=== PATIENT | female | born 1930 | race African-American/Black ===

== ENCOUNTER 2017-09-27 10:27 | Emergency (ER) | payer MEDICARE, BC ==
[~2017-09-27] VITALS: Ht 167.6 cm; Wt 68.2 kg
[~2017-09-27 10:27] MED LIST: ASPIRIN CHEWABL81 MG PO; ATORVASTATIN CA10 MG PO; AVAPRO300 MG PO; CIPROFLOXACN500 MG PO; DORZOL/TIMOL1 ML OU; LEVOTHYROXIN100 MCG PO; LEVOTHYROXIN25 MC1 PO; LEVOTHYROXIN75 MCG PO; LOSARTAN POT50 MG PO; METFORMIN500 M1 PO; METFORMIN500 MG PO; NEXIUM40 M1 PO; NIFEDIAC CC30 MG PO; NIFEDIPINE30 MG PO; OMEPRAZOLE20 MG PO; PRILOSEC20 MG/CAP PO; TRAMADOL HCL50 MG OR; ULTRAM50 MG OR; ZPAK PO
[2017-09-27 11:37] LABS: HEMATOCRIT 35.1 % (37.0-47.0); HEMOGLOBIN 11.2 g/dl (12.0-16.0); IMMATURE GRANULOCYTES 0.3 % (0.0-1.0); MEAN CELL VOLUME 93.4 fL CALC (80.0-100.0); MEAN CORPUSCULAR HGB 29.8 pG CALC (26.0-32.0); MEAN CORPUSCULAR HGB CONC 31.9 g/L CALC (32.0-36.0); NEUT# 5.4 thou/uL (2.00-7.15); RED BLOOD COUNT 3.76 mill/uL (4.20-5.60); RED CELL DISTRI WIDTH 13.9 % (11.5-15.5)
[2017-09-27 11:47] LABS: ALKALINE PHOSPHATASE 99 u/l (38-126); ANION GAP 17 (6-22 (CALC)); BILIRUBIN, TOTAL 0.4 mg/dL (0.0-1.4); BUN 25 mg/dL (8-23); BUN/CREATININE RATIO 19 (12-20 (CALC)); CARBON DIOXIDE 27 mmol/l (22-30); CHLORIDE 104 mmol/l (95-108); CREATININE 1.3 mg/dL (0.5-1.0); GFR 39 ML/MIN (>=60 (CALC)); GFR FOR AFR.AMER. 47 ML/MIN (>=60 (CALC)); POTASSIUM 4.2 mmol/l (3.5-5.1); SGOT/AST 19 u/l (9-36); SGPT/ALT 31 u/l (11-66); SODIUM 144 mmol/l (137-146); TOTAL PROTEIN 7.7 g/dL (6.3-8.2)
[2017-09-27 11:58] LABS: MYOGLOBIN 51 ng/mL (0 - 62)
[2017-09-27 12:51] LABS: URINE BILIRUBIN - DIPSTICK NEGATIVE (NEGATIVE); URINE BLOOD DIPSTICK SMALL (NEGATIVE); URINE COLOR YELLOW; URINE GLUCOSE - DIPSTICK NEGATIVE (NEGATIVE); URINE KETONE NEGATIVE (NEGATIVE); URINE LEUK ESTERASE TRACE (NEGATIVE); URINE PH 7.5 (4.5-8.0); URINE PROTEIN - DIPSTICK NEGATIVE (NEG-TRACE); URINE SPECIFIC GRAVITY 1.015; URINE UROBILINOGEN - DIPSTICK 0.2 E.U./dL (0.2)
[2017-09-27 12:58] LABS: URINE CLARITY HAZY; URINE NITRITE - DIPSTICK POSITIVE (Negative)
[2017-09-27 12:59] LABS: URINE BACTERIA MANY hpf; URINE RBC 0-2 RBC/hpf (0-5)
[2017-09-27] MEDS ORDERED: KEFLEX500 M1 PO (13:15)
[2017-09-27 14:10] VITALS: BP 180/89
== END 2017-09-27 14:10 | disposition home or self-care (01) ==
LOC: ED 10:27
PROVIDERS: Emergency Medicine
PROC: 0T9B70Z Drainage of Bladder with Drainage Device, Via Natural or Artificial Opening (ICD-10-PCS; principal; 2017-09-27)
DX: N39.0 Urinary tract infection, site not specified (principal); B96.20 Unspecified Escherichia coli [E. coli] as the cause of diseases classified elsewhere; R53.1 Weakness; I10 Essential (primary) hypertension; E11.9 Type 2 diabetes mellitus without complications

== ENCOUNTER 2018-04-20 00:48 | Observation (INO) | payer MEDICARE, BC ==
[~2018-04-20] VITALS: Ht 167.6 cm; Wt 77.0 kg
[~2018-04-20 00:48] MED LIST changes: +KEFLEX500 M1 PO
[2018-04-20 01:32] LABS: HEMATOCRIT 39.1 % (37.0-47.0); HEMOGLOBIN 12.5 g/dl (12.0-16.0); IMMATURE GRANULOCYTES 0.2 % (0.0-5.0); MEAN CORPUSCULAR HGB 29.4 pG CALC (26.0-32.0); NEUT# 6.19 thou/uL (2.00-7.15); RED BLOOD COUNT 4.25 mill/uL (4.20-5.60); RED CELL DISTRI WIDTH 13.8 % (11.5-15.5)
[2018-04-20 01:43] LABS: ALBUMIN 4.1 g/dL (3.2-5.0); ALKALINE PHOSPHATASE 96 u/l (38-126); ANION GAP 14 (6-22 (CALC)); BILIRUBIN, TOTAL 0.4 mg/dL (0.0-1.4); BUN 29 mg/dL (8-23); BUN/CREATININE RATIO 25 (12-20 (CALC)); CARBON DIOXIDE 26 mmol/l (22-30); CHLORIDE 105 mmol/l (95-108); CREATININE 1.1 mg/dL (0.5-1.0); GFR 47 ML/MIN (>=60 (CALC)); GFR FOR AFR.AMER. 57 ML/MIN (>=60 (CALC)); POTASSIUM 4.6 mmol/l (3.5-5.1); SGOT/AST 23 u/l (9-36); SODIUM 141 mmol/l (137-146); TOTAL PROTEIN 7.8 g/dL (6.3-8.2)
[2018-04-20 01:56] LABS: MYOGLOBIN 38 ng/mL (0 - 62)
[2018-04-20 02:15] LABS: URINE BILIRUBIN - DIPSTICK NEGATIVE (NEGATIVE); URINE BLOOD DIPSTICK SMALL (NEGATIVE); URINE COLOR YELLOW; URINE GLUCOSE - DIPSTICK >=1000 mg/dL (NEGATIVE); URINE KETONE NEGATIVE (NEGATIVE); URINE LEUK ESTERASE NEGATIVE (NEGATIVE); URINE NITRITE - DIPSTICK NEGATIVE (Negative); URINE PH 5.5 (4.5-8.0); URINE PROTEIN - DIPSTICK NEGATIVE (NEG-TRACE); URINE SPECIFIC GRAVITY 1.025; URINE UROBILINOGEN - DIPSTICK 0.2 E.U./dL (0.2)
[2018-04-20 02:16] LABS: URINE CLARITY CLEAR
[2018-04-20 02:30] LABS: URINE SQUAMOUS EPITHELIAL CELL FEW EPI/hpf (0-FEW)
[2018-04-20 02:31] LABS: URINE BACTERIA RARE hpf
[2018-04-20 03:11] LABS: TSH, 3RD GENERATION 1.4 uIU/mL (0.47 - 4.68)
[2018-04-20 03:55] VITALS: BP 154/91
[2018-04-20 08:18] VITALS: BP 160/81
[2018-04-20 12:48] VITALS: BP 105/69
[2018-04-20 15:20] VITALS: BP 131/86
[2018-04-20 19:09] VITALS: BP 139/88
[2018-04-20 23:41] VITALS: BP 150/86
[2018-04-21 04:27] VITALS: BP 162/91
[2018-04-21 05:54] LABS: HEMATOCRIT 37.2 % (37.0-47.0); HEMOGLOBIN 11.9 g/dl (12.0-16.0); IMMATURE GRANULOCYTES 0.5 % (0.0-5.0); MEAN CELL VOLUME 92.3 fL CALC (80.0-100.0); MEAN CORPUSCULAR HGB 29.5 pG CALC (26.0-32.0); NEUT# 6.55 thou/uL (2.00-7.15); RED BLOOD COUNT 4.03 mill/uL (4.20-5.60); RED CELL DISTRI WIDTH 13.6 % (11.5-15.5)
[2018-04-21 06:07] LABS: ALBUMIN 3.9 g/dL (3.2-5.0); BILIRUBIN, TOTAL 0.5 mg/dL (0.0-1.4); CREATININE 1.1 mg/dL (0.5-1.0); MAGNESIUM 1.6 mg/dL (1.6-2.3); POTASSIUM 3.8 mmol/l (3.5-5.1); TOTAL PROTEIN 7.3 g/dL (6.3-8.2)
[2018-04-21 08:15] VITALS: BP 123/82
[2018-04-21 11:10] VITALS: BP 125/81
[2018-04-21 15:20] VITALS: BP 132/85
[2018-04-21 19:00] VITALS: BP 121/83
[2018-04-22 00:09] VITALS: BP 134/86
[2018-04-22 04:32] VITALS: BP 144/86
[2018-04-22 05:52] LABS: HEMATOCRIT 34.9 % (37.0-47.0); HEMOGLOBIN 11.4 g/dl (12.0-16.0); IMMATURE GRANULOCYTES 0.3 % (0.0-5.0); MEAN CELL VOLUME 90.6 fL CALC (80.0-100.0); MEAN CORPUSCULAR HGB 29.6 pG CALC (26.0-32.0); MEAN CORPUSCULAR HGB CONC 32.7 g/L CALC (32.0-36.0); NEUT# 7.23 thou/uL (2.00-7.15); RED BLOOD COUNT 3.85 mill/uL (4.20-5.60); RED CELL DISTRI WIDTH 14.1 % (11.5-15.5)
[2018-04-22 06:13] LABS: ALBUMIN 3.5 g/dL (3.2-5.0); BILIRUBIN, TOTAL 0.4 mg/dL (0.0-1.4); CREATININE 1.2 mg/dL (0.5-1.0); MAGNESIUM 1.9 mg/dL (1.6-2.3); POTASSIUM 4.1 mmol/l (3.5-5.1); TOTAL PROTEIN 6.5 g/dL (6.3-8.2)
[2018-04-22 08:29] VITALS: BP 137/83
[2018-04-22 11:50] VITALS: BP 133/87
[2018-04-22 16:43] VITALS: BP 127/82
[2018-04-22 17:48] LABS: CHOLESTEROL HDL RATIO 3.5 (<4.4 (CALC))
[2018-04-22 19:31] VITALS: BP 132/78
[2018-04-23 00:43] VITALS: BP 143/90
[2018-04-23 04:00] VITALS: BP 175/98
[2018-04-23 06:07] LABS: HEMOGLOBIN 11.2 g/dl (12.0-16.0); MEAN CELL VOLUME 92.6 fL CALC (80.0-100.0); MEAN CORPUSCULAR HGB 29.6 pG CALC (26.0-32.0); RED BLOOD COUNT 3.78 mill/uL (4.20-5.60); RED CELL DISTRI WIDTH 13.9 % (11.5-15.5)
[2018-04-23 06:41] LABS: ANION GAP 13 (6-22 (CALC)); BUN 21 mg/dL (8-23); BUN/CREATININE RATIO 21 (12-20 (CALC)); CARBON DIOXIDE 23 mmol/l (22-30); CHLORIDE 107 mmol/l (95-108); GFR 53 ML/MIN (>=60 (CALC)); GFR FOR AFR.AMER. > 60 ML/MIN (>=60 (CALC)); POTASSIUM 4.5 mmol/l (3.5-5.1); SGOT/AST 34 u/l (9-36); SODIUM 139 mmol/l (137-146)
[2018-04-23 06:52] LABS: ALKALINE PHOSPHATASE 85 u/l (38-126)
[2018-04-23 08:22] VITALS: BP 125/80
[2018-04-23 11:17] VITALS: BP 126/81
[2018-04-23] MEDS ORDERED: JANUVIA50 MG PO (11:46)
[2018-04-23] MEDS ORDERED: CIPROFLOXACIN500 M1 PO (12:13)
== END 2018-04-23 14:25 | disposition home health service (06) ==
LOC: ED 00:48 → ED-I 03:05 → ED 03:18 → MS2 03:19
PROVIDERS: Emergency Medicine; Internal Medicine Nephrology; Nurse Practitioner Family; ADMIT Internal Medicine; ATTEND Internal Medicine
DX: E11.65 Type 2 diabetes mellitus with hyperglycemia (principal); N39.0 Urinary tract infection, site not specified; G93.41 Metabolic encephalopathy; I12.9 Hypertensive chronic kidney disease with stage 1 through stage 4 chronic kidney disease, or unspecified chronic kidney disease; E11.22 Type 2 diabetes mellitus with diabetic chronic kidney disease; N18.3 Chronic kidney disease, stage 3 (moderate); E11.42 Type 2 diabetes mellitus with diabetic polyneuropathy; E86.0 Dehydration; E03.9 Hypothyroidism, unspecified; E78.5 Hyperlipidemia, unspecified; K21.9 Gastro-esophageal reflux disease without esophagitis; H40.9 Unspecified glaucoma; R26.89 Other abnormalities of gait and mobility; H54.8 Legal blindness, as defined in USA; R74.8 Abnormal levels of other serum enzymes; B96.4 Proteus (mirabilis) (morganii) as the cause of diseases classified elsewhere; Z87.440 Personal history of urinary (tract) infections
CPT/HCPCS: J1650

== ENCOUNTER 2018-05-10 04:08 | Emergency (ER) | payer MEDICARE, BC ==
[~2018-05-10] VITALS: Ht 167.6 cm; Wt 63.6 kg
[~2018-05-10 04:08] MED LIST changes: +CIPROFLOXACIN500 M1 PO; +JANUVIA50 MG PO
[2018-05-10 04:55] LABS: URINE BILIRUBIN - DIPSTICK NEGATIVE (NEGATIVE); URINE BLOOD DIPSTICK SMALL (NEGATIVE); URINE COLOR YELLOW; URINE GLUCOSE - DIPSTICK NEGATIVE (NEGATIVE); URINE KETONE NEGATIVE (NEGATIVE); URINE LEUK ESTERASE NEGATIVE (NEGATIVE); URINE NITRITE - DIPSTICK NEGATIVE (Negative); URINE PROTEIN - DIPSTICK NEGATIVE (NEG-TRACE); URINE UROBILINOGEN - DIPSTICK 0.2 E.U./dL (0.2)
[2018-05-10 04:58] LABS: HEMATOCRIT 35.4 % (37.0-47.0); HEMOGLOBIN 11.3 g/dl (12.0-16.0); IMMATURE GRANULOCYTES 0.3 % (0.0-5.0); MEAN CELL VOLUME 92.9 fL CALC (80.0-100.0); MEAN CORPUSCULAR HGB 29.7 pG CALC (26.0-32.0); MEAN CORPUSCULAR HGB CONC 31.9 g/L CALC (32.0-36.0); NEUT# 6.8 thou/uL (2.00-7.15); RED BLOOD COUNT 3.81 mill/uL (4.20-5.60); RED CELL DISTRI WIDTH 14.2 % (11.5-15.5)
[2018-05-10 05:11] LABS: ALBUMIN 3.6 g/dL (3.2-5.0); ALKALINE PHOSPHATASE 70 u/l (38-126); ANION GAP 12 (6-22 (CALC)); BILIRUBIN, TOTAL 0.5 mg/dL (0.0-1.4); BUN 29 mg/dL (8-23); BUN/CREATININE RATIO 22 (12-20 (CALC)); CARBON DIOXIDE 27 mmol/l (22-30); CHLORIDE 106 mmol/l (95-108); CREATININE 1.3 mg/dL (0.5-1.0); GFR 39 ML/MIN (>=60 (CALC)); GFR FOR AFR.AMER. 47 ML/MIN (>=60 (CALC)); POTASSIUM 4.8 mmol/l (3.5-5.1); SGOT/AST 16 u/l (9-36); SODIUM 141 mmol/l (137-146); TOTAL PROTEIN 6.8 g/dL (6.3-8.2)
[2018-05-10 05:20] LABS: MYOGLOBIN 47 ng/mL (0 - 62)
[2018-05-10 05:45] LABS: URINE CLARITY CLEAR
[2018-05-10 05:55] LABS: URINE SQUAMOUS EPITHELIAL CELL RARE EPI/hpf (0-FEW); URINE WBC 0-2 WBC/hpf (0-5)
[2018-05-10] MEDS ORDERED: CIPROFLOXACN500 MG PO (06:16)
[2018-05-10 06:40] VITALS: BP 161/73
== END 2018-05-10 06:30 | disposition home or self-care (01) ==
LOC: ED 04:08
PROVIDERS: Emergency Medicine
DX: R42 Dizziness and giddiness (principal); N39.0 Urinary tract infection, site not specified; E11.9 Type 2 diabetes mellitus without complications; I10 Essential (primary) hypertension; K21.9 Gastro-esophageal reflux disease without esophagitis

== ENCOUNTER 2018-09-01 13:00 | Observation (INO) | payer MEDICARE, BC ==
[~2018-09-01] VITALS: Ht 167.6 cm; Wt 74.0 kg
--- NOTE | 2018-09-01 13:05 | NUR ---
PATIENT TO ROOM VIA EMS AND PHYSICIAN AT BEDSIDE FOR EVAL
[2018-09-01 13:39] LABS: HEMATOCRIT 38.9 % (37.0-47.0); HEMOGLOBIN 12.1 g/dl (12.0-16.0); IMMATURE GRANULOCYTES 0.5 % (0.0-5.0); MEAN CELL VOLUME 94.2 fL CALC (80.0-100.0); MEAN CORPUSCULAR HGB 29.3 pG CALC (26.0-32.0); MEAN CORPUSCULAR HGB CONC 31.1 g/L CALC (32.0-36.0); NEUT# 5.28 thou/uL (2.00-7.15); RED BLOOD COUNT 4.13 mill/uL (4.20-5.60); RED CELL DISTRI WIDTH 13.5 % (11.5-15.5)
[2018-09-01 13:53] LABS: ANION GAP 14 (6-22 (CALC)); BUN 26 mg/dL (8-23); BUN/CREATININE RATIO 21 (12-20 (CALC)); CARBON DIOXIDE 24 mmol/l (22-30); CHLORIDE 103 mmol/l (95-108); CREATININE 1.2 mg/dL (0.5-1.0); GFR 43 ML/MIN (>=60 (CALC)); GFR FOR AFR.AMER. 52 ML/MIN (>=60 (CALC)); POTASSIUM 4.6 mmol/l (3.5-5.1); SODIUM 136 mmol/l (137-146)
--- NOTE | 2018-09-01 14:00 | NUR ---
PT STATES HAD A SYNCOPAL EPISODE GETTING OFF OF TOLIET STOOL RESIDENTIAL COORDINATOR WITH ASSOCIATED CHEST PAIN. STATES HAD SOME DULL RIGHT SIDED CHEST PAIN THAT LASTED ONLY 10 MIN AND RESOLVED. UPON ARRIVAL PT IS ALERT/ORIENTED. FAMILY AT BEDSIDE. CALL LIGHT WITHIN REACH, SIDE RAILS UP AND FLUIDS INFUSING.
--- NOTE | 2018-09-01 14:21 | NUR ---
PT NOR THE FAMILY CAN VERIFY PTS MED LIST FOR ME. PHARMACY CONSULT PLACED.
--- NOTE | 2018-09-01 14:22 | NUR ---
AFTER REVIEWING MEDICATION LIST, REASKED FAMILY ABOUT MEDICATION FOR DIABETES AND THEY STATE SHE DOES NOT TAKE INSULIN AND THAT IS ALL THE MEDICATIONS SHE TAKES. WILL KEEP PHARMACY CONSULT IN
--- NOTE | 2018-09-01 14:58 | NUR ---
PTS DAUGHTER BROUGHT BACK A MED LIST AND VERIFIED MEDICATIONS AT THIS TIME
[2018-09-01] MEDS ORDERED: LIPITOR10 M1 PO (15:31)
[2018-09-01] MEDS ORDERED: OMEPRAZOLE20 M2 PO (15:31)
[2018-09-01] MEDS ORDERED: LOSARTAN POT50 MG PO (15:31)
[2018-09-01] MEDS ORDERED: NIFEDIPINE ER30 M1 PO (15:31)
[2018-09-01] MEDS ORDERED: ASPIRIN81 MG PO (15:32)
[2018-09-01] MEDS ORDERED: LEVOTHYROXIN100 MCG PO (15:32)
--- NOTE | 2018-09-01 15:44 | NUR ---
PT EATING HER LUNCH TRAY, FINISHED APPROX 85 % OF TRAY. NO DIZZINESS OR CHEST PAIN SINCE ARRIVAL
[2018-09-01] MEDS ORDERED: OS-CAL 500500 M1 PO (16:16)
[2018-09-01] MEDS ORDERED: VITAMIN B-12500 MCG PO (16:17)
--- NOTE | 2018-09-01 16:45 | NUR ---
PT REPORT GIVEN TO BLANCA MATTHEW FOR CONTINUATION OF CARE. PT TAKEN PER STRETCHER AND TELEMETRY TO ZONIA VEGA
--- NOTE | 2018-09-01 17:00 | NUR ---
PT ARRIVED ON FLOOR AT 1700 VIA STRETCHER, ACCOMPANIED BY ER STAFF; USED SLIDER TO MOVE PT FROM STRETCHER TO BED; PT A/O X3; RESP EVEN AND UNLABORED ON ROOM AIR; TELE READING SR 76 WITH IVCD; PT'S SON (GEORGE) ANSWERED SOME OF THE ADMISSION QUESTIONS; PT REFUSING FLU AND PNEUMONIA SHOT; VISUALLY IMPAIRED; VOIDED CLEAR, YELLOW URINE ON BEDPAN; GRANDSON AT BEDSIDE ASSISTING PT WITH SUPPER; CALL DENNIS IN REACH; SAFETY PRECAUTION REINFORCE; WILL CONTINUE TO MONITOR.
[2018-09-01 17:12] VITALS: BP 170/80
[2018-09-01 18:06] VITALS: BP 140/80
[2018-09-01 19:46] VITALS: BP 172/92
--- NOTE | 2018-09-01 20:50 | NUR ---
PT RESTING IN BED. MULTIPLE FAMILY MEMBERS IN A THIS TIME. 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 ASSESMENT COMPLETED AT THIS TIME. NO NEEDS RIGHT NOW. NO C/O PAIN. CALL DENNIS IN REACH. WILL CONTINUE TO MONITOR.
[2018-09-02] VITALS (8 sets, daily range): BP systolic 121–182; BP diastolic 76–104
--- NOTE | 2018-09-02 | NUR ---
PT RESTING QUIETLY IN BED. FAMILY AT BED SIDE. NO S/S OF DISTRESS NOTED. CALL DENNIS IN REACH. WILOL CONTINUE TO MONITOR.
--- NOTE | 2018-09-02 01:30 | NUR ---
PT B/P ASSESSED 172/99, HR 86. PT MEDICATED FOR HIGH BLOOD PRESSURE ORDERS PROVIDE. NO S/O DISTRESS, PT WAS SLEEPING WE ENTERED THE ROOM. LIGHTS BACK OUT, WILL CONTINUE TO MONITOR W/FOLLOW-UP BP. FAMILY ASLEEP AT BEDSIDE.
--- NOTE | 2018-09-02 03:15 | NUR ---
PT C/O OF PAIN BELOW NAVEL AND NO BEING ABLE TO PEE. PT HAS VOIDED SEVERAL TIMES. BLADDER SCANNED AT THIS TIME 96ML. WARM PACK APPLIED TO ABDOMEN
[2018-09-02 05:52] LABS: HEMATOCRIT 36.1 % (37.0-47.0); HEMOGLOBIN 11.7 g/dl (12.0-16.0); IMMATURE GRANULOCYTES 0.4 % (0.0-5.0); MEAN CELL VOLUME 90.5 fL CALC (80.0-100.0); MEAN CORPUSCULAR HGB 29.3 pG CALC (26.0-32.0); MEAN CORPUSCULAR HGB CONC 32.4 g/L CALC (32.0-36.0); NEUT# 5.51 thou/uL (2.00-7.15); RED BLOOD COUNT 3.99 mill/uL (4.20-5.60); RED CELL DISTRI WIDTH 13.6 % (11.5-15.5)
[2018-09-02 06:17] LABS: ALBUMIN 3.5 g/dL (3.2-5.0); ALKALINE PHOSPHATASE 83 u/l (38-126); AMYLASE 71 u/l (30-110); ANION GAP 14 (6-22 (CALC)); BILIRUBIN, TOTAL 0.6 mg/dL (0.0-1.4); BUN 22 mg/dL (8-23); BUN/CREATININE RATIO 23 (12-20 (CALC)); CARBON DIOXIDE 24 mmol/l (22-30); CHLORIDE 100 mmol/l (95-108); GFR 53 ML/MIN (>=60 (CALC)); GFR FOR AFR.AMER. > 60 ML/MIN (>=60 (CALC)); LIPASE 170 u/l (23-300); MAGNESIUM 1.9 mg/dL (1.6-2.3); SGOT/AST 15 u/l (9-36); SODIUM 133 mmol/l (137-146); TOTAL PROTEIN 6.4 g/dL (6.3-8.2)
--- NOTE | 2018-09-02 07:45 | NUR ---
ASSESSMENT COMPLETED; PT SITTING UP IN BED WITH EYES CLOSED BUT AWAKE; RESP EVEN AND UNLABORED ON ROOM AIR; IV FLUSHED WELL, SITE APPEARS HEALTHY; AM MEDS ADMINISTERED, TOLERTATED WELL; FAMILY AT BEDSIDE SLEEPING; PT VOICE NO CONCERNS; SAFETY PRECAUTION REINFORCE; WILL CONTINUE TO MONITOR.
--- NOTE | 2018-09-02 11:32 | NUR ---
B/P ELEVATED, HR 81, B/P 160/90; Klaudia KING RN MEDICATED PT WITH APRESOLINE; RESP EVEN AND UNLABORED ON ROOM AIR; WILL CONTINUE TO MONITOR.
[2018-09-02 12:41] LABS: URINE BILIRUBIN - DIPSTICK NEGATIVE (NEGATIVE); URINE BLOOD DIPSTICK NEGATIVE (NEGATIVE); URINE COLOR YELLOW; URINE GLUCOSE - DIPSTICK 500 mg/dL (NEGATIVE); URINE KETONE NEGATIVE (NEGATIVE); URINE LEUK ESTERASE NEGATIVE (NEGATIVE); URINE NITRITE - DIPSTICK NEGATIVE (Negative); URINE PROTEIN - DIPSTICK NEGATIVE (NEG-TRACE); URINE UROBILINOGEN - DIPSTICK 0.2 E.U./dL (0.2)
--- NOTE | 2018-09-02 14:55 | NUR ---
PT DOWN FOR CT VIA STRETCHER ACCOMPANIED BY CNAS; EDUCATIONAL INSTITUTION CURATOR REPORT IV CAME OUT DURING TRF TO STRETCHER;
--- NOTE | 2018-09-02 15:30 | NUR ---
PT RETURN FROM CT VIA STRETCHER ACCOMPANIED BY TWO STAFF IN STABLE CONDITION; BACK INTO BED; HEALING WOUND ON L BUTTOCK, PICTURE TAKEN, DUODERM APPLIED, TOLERATED WELL; FAMILY PRESENT IN ROOM.
--- NOTE | 2018-09-02 16:58 | NUR ---
ASSISTED PT OFF BEDPAN; RN MEDICATED WITH APRESOLINE; IV SITE PATENT, FLUSHED WELL; FAMILY AT BEDSIDE; WILL CONTINUE TO MONITOR,
--- NOTE | 2018-09-02 19:00 | NUR ---
RECEIVED REPORT FROM DAY NURSE. PT RESTING IN BED. CONFUSED AT THIS TIME. WANTING TO GET BACK INTO BED ALL THOUGH SHE IS IN BED, REORIENTED WITHOUT CHANGE. CALL DENNIS, BED ALARM IN PLACE. WILL CONTINUE TO MONITOR.
--- NOTE | 2018-09-02 20:26 | NUR ---
PT YELLING OUT FOR FAMILY MEMEBERS. REORENTED NEEDED. ASSEMENT COMPLETED A THIS TIME. DUODERM TO LEFT BUTTOCKS. IV FLUSHES WELL. NO SWELLING OR EDEMA. CALL DENNIS IN REACH. WILL CONTINUE TO MONITOR.
--- NOTE | 2018-09-03 | NUR ---
PT CONTINUOUSLY PULLING OFF TELE, YELLING OUT FOR FAMILY MEMEBERS, TRYING TO GET OUT OF BED AND PULLING OFF GOWN. PT IS NAKED AND THEN SAYS SHE IS COLD. PT REIORIENTED AND STRAIGHTENED UP. BED ALARM IN PLACE. WILL CONTINUE TO MONITOR.
[2018-09-03 00:12] VITALS: BP 145/78
[2018-09-03 03:53] VITALS: BP 159/95
--- NOTE | 2018-09-03 04:00 | NUR ---
PT CONTINUE TO FIDGET WITH GOWN, TELE, BLANKETS. REORIENTED NEEDED. CALL DENNIS IN REACH. WILL CONTINUE TO MONITOR.
--- NOTE | 2018-09-03 06:30 | NUR ---
PT REFUSING MEDS AT THIS TIME STATES SHE HAD TAKEN HER MEDS TODAY. ASSURED HER SHE HAD NOT.
[2018-09-03 08:23] VITALS: BP 112/79
--- NOTE | 2018-09-03 08:33 | NUR ---
ASSESSMENT COMPLETED; PT APPEARS TO BE CONFUSED; KNOWS HER NAME & PARTIAL OF ; BED ALARM ACTIVE; RESP EVEN AND UNLABORED; IV FLUSHED WITHOUT DIFFICULTY; AM MEDS ADMINISTERED, TOLERATED WELL; TELE IN PLACE; CALL DENNIS IN REACH WILL CONTINUE TO MONITOR.
[2018-09-03 11:10] VITALS: BP 150/90
--- NOTE | 2018-09-03 12:27 | NUR ---
PT SITTING UP IN BED EATING LUNCH, DAUGHTER ASSISTING PT; RESP EVEN AND UNLABORED ON ROOM AIR; PT SEEMS MORE ALERT AT THIS MOMENT; BED ALARM ACTIVE; WILL CONTINUE TO MONITOR.
--- NOTE | 2018-09-03 14:20 | NUR ---
ZHAO CARE PROVIDED, REPOSITION PT; ADMINISTER FLEET EMEMA, PT TOLERATED WELL; BED ALARM ACTIVE; FAMILY AT BEDSIDE; WILL CONTINUE TO MONITOR.
[2018-09-03 15:04] VITALS: BP 110/60
--- NOTE | 2018-09-03 16:38 | NUR ---
PT LAYING IN BED WITH EYES CLOSED, BUT NOT SLEEPING, EASILY AROUSED; RESP EVEN AND UNLABORED; WARM PRUNE JUICE GIVEN, TOLERATED WELL; REPOSITION FOR SUPPER; BED ALARM ACTIVE; FAMILY MEMBERS AT BEDSIDE;
--- NOTE | 2018-09-03 17:46 | NUR ---
PT SITTING UP IN BED, FAMILY FEEDING HER SUPPER; NO S/S OF DISTRESS NOTED;
--- NOTE | 2018-09-03 19:00 | NUR ---
PT HAD LG INCONT VOID, ZHAO CARE GIVEN, REPOSITION; NO BM YET. CALL DENNIS IN REACH; BED ALARM ACTIVE;
--- NOTE | 2018-09-03 19:15 | NUR ---
RECEIVED REPORT FROM DAY NURSE. PT RESTING IN BED WITH EYES CLOSED AND LIGHTS OFF. NO NEEDS AT THIS TIME. CALL DENNIS IN REACH. WILL CONTINUE TO MONITOR.
[2018-09-03 20:14] VITALS: BP 110/81
--- NOTE | 2018-09-03 20:56 | NUR ---
RECEIVED CALL FROM ELAINE SCHULER. NEW ORDERS RECEIVED.
--- NOTE | 2018-09-03 21:27 | NUR ---
PT RESTING QUIETLY IN BED. DAUGHTER AT BEDSIDE.ASSESMENT COMPLETED AT THIS TIME. DUEDERM IN PLACE ON BUTTOCKS. IV FLUSHES WELL. NO SWELLING OR EDEMA. NO BOWEL MOVEMENT YET. PT PROVIDED MOM, PRUNE JUICE AND MIRALAX. TOLERATED WELL. WILL CONTINUE TO MONITOR.
[2018-09-04] VITALS (7 sets, daily range): BP systolic 95–152; BP diastolic 56–96
--- NOTE | 2018-09-04 | NUR ---
PT RESTING QUIETLY IN BED. PT CHECKED FOR BM, NONE AT THIS TIME. NO NEEDS AT THIS TIME. FAMILY REMAINS AT BEDSIDE. CALL DENNIS IN REACH. WILL CONTINUE TO MONITOR.
--- NOTE | 2018-09-04 04:00 | NUR ---
PT RESTING IN BED WITH EYES CLOSED NO S/S OF DISTRESS NOTED. VISITORS AT BEDSIDE. CALL DENNIS IN REACH. WILL CONTINUE TO MONITOR.
--- NOTE | 2018-09-04 09:23 | NUR ---
PT SITTING UP IN BED WITH EYES CLOSED, A/O; RESP EVEN AND UNLABORED ON ROOM AIR; VITALS OBTAINED, STABLE; IV FLUSHED WELL, SITE APPEARS HEALTHY; TELE IN PLACE; NO BM YET; AM MEDS ADMINISTERED; OLD, HARD, SCAR NOTED TO BOTTOM OF LT FOOT; DRESSING TO BUTTOCKS INTACT; CALL DENNIS IN REACH; FAMILY AT BEDSIDE. WILL CONTINUE TO MONITOR.
--- NOTE | 2018-09-04 10:27 | NUR ---
DR MARX AT BEDSIDE TO DISCUSS POC;
--- NOTE | 2018-09-04 12:22 | NUR ---
PT SITTING UP IN BED, GRAND SON FEEDING HER LUNCH; RESP EVEN AND UNLABORED ON ROOM AIR; TELE IN PLACE; NO S/S OF DISTRESS NOTED; WILL CONTINUE TO MONITOR.
--- NOTE | 2018-09-04 13:28 | NUR ---
POSITION PT ON LT SIDE, ADMINISTER SOAP SUDS EMEMA, TOLERTATED WELL; WILL CONTINUE TO MONITOR.
--- NOTE | 2018-09-04 14:05 | NUR ---
PT ON COMMODE BECAME UNRESPONSIVE, PANTOGRAPH I ENGRAVER CALLED @1400, DR MARX AT BED SIDE; PT LIFTED BACK INTO BED; VITALS MEASURED; ORDERS RECEIVED FOR NS BOLUS; PT ALERT, FAMILIES AT BEDSIDE; WILL CONTINUE TO MONITOR.
--- NOTE | 2018-09-04 14:20 | NUR ---
PT HAD A LG FIRM, LT BRE BM; PT ALERT, IVF INFUSING WELL, SITE APPEARS HEALTHY; FAMILIES AT BEDSIDE WILL CONTINUE TO MONITOR.
--- NOTE | 2018-09-04 14:46 | NUR ---
PT EVAL WAS DEFERRED. PT BECAME UNRESPONSIVE WHILE ON COMMODE, CRIME SCENE TECHNICIAN WAS CALLED.
--- NOTE | 2018-09-04 15:10 | NUR ---
PT LAYING IN BED WITH EYES CLOSED; VITALS STABLE; RESP EVEN AND UNLABORED ON ROOM AIR; FAMILY AT BED SIDE; WILL CONTINUE TO MONITOR
--- NOTE | 2018-09-04 17:48 | NUR ---
PT SITTING UP IN BED EATING SUPPER, ASSISTED BY HER GRANDSON; A/O; RESP EVEN AND UNLABORED; IVF NS@75CC/HR, INFUSING WELL; SITE APPEARS HEALTHY; WILL CONTINUE TO MONITOR.
--- NOTE | 2018-09-04 21:02 | NUR ---
Patient resting in bed. No S&S of distress. Family at bedside. Breath sounds clear. Abdomen distended. Will continue to monitor patient progress.
--- NOTE | 2018-09-04 23:39 | NUR ---
Patient resting in bed. No complaints of pain. v/s wnl. Family at bedside. Will continue to monitor patient progress. No change in previous assessment.
[2018-09-05 00:11] VITALS: BP 152/87
[2018-09-05 03:50] VITALS: BP 151/83
[2018-09-05 05:39] LABS: HEMATOCRIT 35.8 % (37.0-47.0); HEMOGLOBIN 11.5 g/dl (12.0-16.0); IMMATURE GRANULOCYTES 1.1 % (0.0-5.0); MEAN CELL VOLUME 92.7 fL CALC (80.0-100.0); MEAN CORPUSCULAR HGB 29.8 pG CALC (26.0-32.0); MEAN CORPUSCULAR HGB CONC 32.1 g/L CALC (32.0-36.0); NEUT# 5.31 thou/uL (2.00-7.15); RED BLOOD COUNT 3.86 mill/uL (4.20-5.60); RED CELL DISTRI WIDTH 14.5 % (11.5-15.5)
[2018-09-05 06:02] LABS: ALBUMIN 3.1 g/dL (3.2-5.0); BILIRUBIN, TOTAL 0.4 mg/dL (0.0-1.4); CREATININE 1.1 mg/dL (0.5-1.0); TOTAL PROTEIN 5.8 g/dL (6.3-8.2)
[2018-09-05 06:10] LABS: MAGNESIUM 2.4 mg/dL (1.6-2.3); POTASSIUM 4.9 mmol/l (3.5-5.1)
--- NOTE | 2018-09-05 07:00 | NUR ---
REPORT RECEIVED FROM AVIVARN;PT RESTING IN SEMI FOWLERS POSITION WITH GRANDSON AT BEDSIDE;RESPIRATIONS EVEN AND UNLABORED ON RA;NO S/S OF DISTRESS NOTED;INTRODUCED SELF TO GRANDSON AND DISCUSSED POC;TELE MONITORING IN PLACE;IV FLUIDS INFUSING WITH EASE;ENCOURAGED TO CALL FOR ASSISTANCE IF NEEDED;FALL PRECAUTIONS IN PLACE WITH BED IN THE LOWEST POSITION AND CALL LIGHT IN REACH;WILL CONTINUE TO MONITOR
--- NOTE | 2018-09-05 09:50 | NUR ---
PT RESTING IN SEMI FOWLERS POSITION WITH GRANDSON AT BEDSIDE;VS OBTAINED AND ASSESSMENT COMPLETED;PT ALERT, CONFUSION NOTED AT TIMES;PT DENIES ANY CURRENT PAIN OR DISCOMFORTS,PAIN SCALE AND REPORTING EDUCATED;RESPIRATIONS SHALLOW ON RA;ABDOMEN SOFT ON PALPATION AND ACTIVE IN ALL 4 QUADRANTS;WEAK PEDAL PULSES;TELE MONITORING IN PLACE;#20G TO RAC INFUSING NS @ 75ML/HR;ACCUCHECK WAS 187 THIS MORNING AND PT WAS COVERED WITH SLIDING SCALE INSULIN PER ORDER;IT SHOULD BE NOTED THAT PT IS VISUALLY IMPAIRED;PT AND GRANDSON DENY ANY ADDITIONAL NEEDS AT THIS TIME;ENCOURAGED TO CALL FOR ASSISTANCE IF NEEDED;FALL PRECAUTIONS IN PLACE WITH CALL LIGHT IN REACH;WILL CONTINUE TO MONITOR
[2018-09-05 09:51] VITALS: BP 149/75
[2018-09-05 11:00] VITALS: BP 150/86
--- NOTE | 2018-09-05 11:16 | NUR ---
AT BEDSIDE DISCUSSING POC.
--- NOTE | 2018-09-05 11:17 | NUR ---
PT RESTING IN SEMI FOWLERS POSITION WITH GRANDSON AT BEDSIDE;RESPIRATIONS REMAIN EVEN AND UNLABORED ON RA;PT DENIES ANY CURRENT PAIN OR NEEDS;TELE MONITORING IN PLACE;ACCUCHECK 236 AND PT COVERED WITH SLIDING SCALE NOVOLOG PER ORDER;IV FLUIDS D/C AT THIS TIME PER ;PT DENIES ANY ADDITIONAL NEEDS AND IS ENCOURAGED TO CALL FOR ASSISTANCE IF NEEDED;CALL LIGHT IN REACH;WILL CONTINUE TO MONITOR
[2018-09-05 15:41] VITALS: BP 112/68
--- NOTE | 2018-09-05 16:23 | NUR ---
ALL DISCHARGE INSTRUCTIONS PROVIDED AT THIS TIME,QUESTIONS ANSWERED;DAUGHTER SIGNED FOR PT;IV SITE REMOVED WITH CATHETER INTACT;ENCOURAGED TO FOLLOW UP WITH PRIMARY CARE DOCTOR;PT DENIES ANY ADDITIONAL NEEDS;WHEELCHAIR TO BE PROVIDED FOR DISCHARGE.
--- NOTE | 2018-09-05 16:26 | NUR ---
Discharge instructions given. Patient verbalizes understanding of same. Discharged in stable condition via Wheelchair to Home with family. All belongings sent with pt. Pt discharged via wheelchair in stable condition accompanied by family and ruma Horowitz
== END 2018-09-05 16:28 | disposition home health service (06) ==
LOC: ED 13:00 → ED-I 13:32 → ED 15:19 → MS2 15:20
PROVIDERS: Family Medicine; Nurse Practitioner Family; ADMIT Internal Medicine Nephrology; ATTEND Internal Medicine Nephrology
DX: I95.9 Hypotension, unspecified (principal); I12.9 Hypertensive chronic kidney disease with stage 1 through stage 4 chronic kidney disease, or unspecified chronic kidney disease; E11.22 Type 2 diabetes mellitus with diabetic chronic kidney disease; N18.3 Chronic kidney disease, stage 3 (moderate); E11.42 Type 2 diabetes mellitus with diabetic polyneuropathy; E11.65 Type 2 diabetes mellitus with hyperglycemia; K56.41 Fecal impaction; E03.9 Hypothyroidism, unspecified; K21.9 Gastro-esophageal reflux disease without esophagitis; E78.5 Hyperlipidemia, unspecified; D63.8 Anemia in other chronic diseases classified elsewhere; H91.90 Unspecified hearing loss, unspecified ear; H40.9 Unspecified glaucoma; R07.89 Other chest pain; R55 Syncope and collapse; R06.02 Shortness of breath
CPT/HCPCS: J1650; Q9967

== ENCOUNTER 2019-05-01 22:32 | Inpatient (IN) | payer MEDICARE, BC, MEDICAID ==
[~2019-05-01] VITALS: Ht 167.6 cm; Wt 69.0 kg
[~2019-05-01 22:32] MED LIST changes: +ASPIRIN81 MG PO; +LIPITOR10 M1 PO; +NIFEDIPINE ER30 M1 PO; +OMEPRAZOLE20 M2 PO; +OS-CAL 500500 M1 PO; +VITAMIN B-12500 MCG PO
--- NOTE | 2019-05-01 22:32 | NUR ---
TO TX ROOM VIA EMS
[2019-05-01 23:09] LABS: HEMATOCRIT 36.3 % (37.0-47.0); HEMOGLOBIN 11.4 g/dl (12.0-16.0); IMMATURE GRANULOCYTES 0.2 % (0.0-5.0); MEAN CELL VOLUME 87.9 fL CALC (80.0-100.0); MEAN CORPUSCULAR HGB 27.6 pG CALC (26.0-32.0); MEAN CORPUSCULAR HGB CONC 31.4 g/L CALC (32.0-36.0); NEUT# 6.85 thou/uL (2.00-7.15); RED BLOOD COUNT 4.13 mill/uL (4.20-5.60); RED CELL DISTRI WIDTH 17.4 % (11.5-15.5)
[2019-05-01 23:21] LABS: ALKALINE PHOSPHATASE 64 u/l (38-126); ANION GAP 16 (6-22 (CALC)); BILIRUBIN, TOTAL 0.4 mg/dL (0.0-1.4); BUN 19 mg/dL (8-23); BUN/CREATININE RATIO 17 (12-20 (CALC)); CARBON DIOXIDE 23 mmol/l (22-30); CHLORIDE 104 mmol/l (95-108); CREATININE 1.1 mg/dL (0.5-1.0); GFR 47 ML/MIN (>=60 (CALC)); GFR FOR AFR.AMER. 57 ML/MIN (>=60 (CALC)); POTASSIUM 4.1 mmol/l (3.5-5.1); SGOT/AST 17 u/l (9-36); SODIUM 139 mmol/l (137-146)
[2019-05-01 23:26] LABS: ALBUMIN 3.9 g/dL (3.2-5.0); TOTAL PROTEIN 7.4 g/dL (6.3-8.2)
--- NOTE | 2019-05-01 23:30 | NUR ---
STATES FEELING BETTER.
[2019-05-01 23:33] LABS: MYOGLOBIN 61 ng/mL (0 - 62)
[2019-05-01] MEDS ORDERED: ALENDRONATE SOD70 MG PO (23:42)
--- NOTE | 2019-05-02 | NUR ---
CLEANED OF STOOL AND URINE
[2019-05-02 00:26] LABS: URINE BILIRUBIN - DIPSTICK NEGATIVE (NEGATIVE); URINE BLOOD DIPSTICK NEGATIVE (NEGATIVE); URINE COLOR YELLOW; URINE GLUCOSE - DIPSTICK NEGATIVE (NEGATIVE); URINE KETONE NEGATIVE (NEGATIVE); URINE LEUK ESTERASE SMALL (NEGATIVE); URINE NITRITE - DIPSTICK POSITIVE (Negative); URINE PH 5.5 (4.5-8.0); URINE PROTEIN - DIPSTICK NEGATIVE (NEG-TRACE); URINE SPECIFIC GRAVITY 1.015; URINE UROBILINOGEN - DIPSTICK 0.2 E.U./dL (0.2)
[2019-05-02 00:27] LABS: URINE BACTERIA MANY hpf; URINE EPITHELIAL CELLS MODERATE EPI/hpf (0-FEW)
--- NOTE | 2019-05-02 01:00 | NUR ---
Admission Note Report Given to: VIPUL STRICKLAND Transported by: Wheelchair X Stretcher Transported with: X Nurse Transporter X Patent IV O2 Adapted Physical Education Aide
--- NOTE | 2019-05-02 01:15 | NUR ---
PT ARRIVED TO THE FLOOR VIA STRETCHER ACCOMPANIED BY ER STAFF AND DAUGHTER. PT TRANSFERRED FROM STRETCHER TO BED X3 ASSIST. RESPIRATIONS EVEN AND UNLABORED, LUNGS SOUND CLEAR. PEDAL PULSES STRONG. TELE IN PLACE. #20 LH PATENT AND APPEARS HEALTHY. PT ORIENTED TO ROOM AND CALL DENNIS SYSTEM. BED ALARM ACTIVE FOR PT SAFETY. WILL CONTINUE TOMONITOR.
[2019-05-02 01:33] VITALS: BP 108/72
--- NOTE | 2019-05-02 04:04 | NUR ---
PT PULLING ON TELE CONFUSED. REORIENTED PT AND REPLACED TELE. NO S/S OF DISTRESS AT THIS TIME. BED ALARM ACTIVE FOR PT SAFETY. WILL CONTINUE TO MONITOR.
[2019-05-02 04:51] VITALS: BP 115/80
--- NOTE | 2019-05-02 07:00 | NUR ---
RECIEVED REPORT FROM NIGHT NURSE. PT RESTING IN BED YELLING OUT FOR YAMILET IRVING. PT IS CONFUSED. ATTEMPT TO REORIENT. BED ALARM IN PLACE. WILL CONTINUE TO MONITOR.
--- NOTE | 2019-05-02 08:05 | NUR ---
PT RESTING IN BED WITH EYES CLOSED. ASSESMENT COMPLETED A THIS TIME. IV INFUSING WELL. GOPI MCGREGOR CLEANING PT OF INCONTINENCE. q2 TURN. PT IS BLIND. PT IS CONFUSED A THIS TIME. WANTING TO GO INTO THE LIVING ROOM. NO OTHER NEEDS ATR THIS TIME IV INFUSING WELL. BED ALARM IN [place]. WILL CONTINEUE TO MONITOR.
[2019-05-02 11:10] VITALS: BP 137/83
[2019-05-02 11:23] LABS: HEMATOCRIT 32.1 % (37.0-47.0); HEMOGLOBIN 10.2 g/dl (12.0-16.0); IMMATURE GRANULOCYTES 0.4 % (0.0-5.0); MEAN CELL VOLUME 87.7 fL CALC (80.0-100.0); MEAN CORPUSCULAR HGB 27.9 pG CALC (26.0-32.0); MEAN CORPUSCULAR HGB CONC 31.8 g/L CALC (32.0-36.0); NEUT# 5.02 thou/uL (2.00-7.15); RED BLOOD COUNT 3.66 mill/uL (4.20-5.60); RED CELL DISTRI WIDTH 17.6 % (11.5-15.5)
[2019-05-02 11:55] LABS: ANION GAP 16 (6-22 (CALC)); BUN 18 mg/dL (8-23); BUN/CREATININE RATIO 21 (12-20 (CALC)); CARBON DIOXIDE 21 mmol/l (22-30); CHLORIDE 106 mmol/l (95-108); CREATININE 0.9 mg/dL (0.5-1.0); GFR 59 ML/MIN (>=60 (CALC)); GFR FOR AFR.AMER. > 60 ML/MIN (>=60 (CALC)); POTASSIUM 3.9 mmol/l (3.5-5.1); SODIUM 139 mmol/l (137-146)
[2019-05-02 11:57] LABS: MAGNESIUM 1.5 mg/dL (1.6-2.3)
--- NOTE | 2019-05-02 12:00 | NUR ---
PT RESTING IN BED WITH EYES CLOSED. DAUGHTER AT BEDSIDE. NO NEEDS AT HTIS TIME.WILL CONTINUYE TO MONITPOR.
[2019-05-02 16:11] VITALS: BP 141/86
[2019-05-02 19:00] VITALS: BP 159/99
--- NOTE | 2019-05-02 19:05 | NUR ---
REPORT RECEIVED FROM ROBB JOHNSON. PT RESTING IN BED. NO S/S OF DISTRESS AT THIS TIME. SAFETY PRECAUTIONS IN PLACE. WILL CONTINUE TO MONITOR.
--- NOTE | 2019-05-02 20:44 | NUR ---
PT RESTING IN BED. ALERT TO SELF. RESPIRATIONS EVEN AND UNLABORED ON RA. LUNGS SOUND CLEAR. PEDAL PULSES STRONG. PT DENIES ANY PAIN OR DISCOMFORT AT THIS TIME. TELE IN PLACE. BED ALARM ACTIVE FOR PT SAFETY. WILL CONTINUE TO MONITOR.
[2019-05-03] VITALS (8 sets, daily range): BP systolic 128–168; BP diastolic 60–100
--- NOTE | 2019-05-03 00:19 | NUR ---
PT CONFUSED YELLING OUT. PT REMOVED IV. NEW IV TO BE STARTED.
--- NOTE | 2019-05-03 01:37 | NUR ---
NEW IV STARTED #22 LW, PT TOLERATED WELL. SAFETY PRECAUTIONS IN PLACE. WILL CONTINUE TO MONTIOR.
--- NOTE | 2019-05-03 03:43 | NUR ---
PT CALLING OUT HER DAUGHTERS NAME, PT ASKING TO GO HOME. REOIRIENTED PT. SAFETY PRECAUTIONS IN PLACE. WILL CONTINUE TO MONITOR.
[2019-05-03 05:06] LABS: HEMATOCRIT 35.1 % (37.0-47.0); HEMOGLOBIN 11.1 g/dl (12.0-16.0); IMMATURE GRANULOCYTES 0.5 % (0.0-5.0); MEAN CELL VOLUME 87.5 fL CALC (80.0-100.0); MEAN CORPUSCULAR HGB 27.7 pG CALC (26.0-32.0); MEAN CORPUSCULAR HGB CONC 31.6 g/L CALC (32.0-36.0); NEUT# 5.3 thou/uL (2.00-7.15); RED BLOOD COUNT 4.01 mill/uL (4.20-5.60); RED CELL DISTRI WIDTH 17.4 % (11.5-15.5)
[2019-05-03 05:19] LABS: BUN 13 mg/dL (8-23); BUN/CREATININE RATIO 19 (12-20 (CALC)); CARBON DIOXIDE 23 mmol/l (22-30); CHLORIDE 106 mmol/l (95-108); CREATININE 0.7 mg/dL (0.5-1.0); GFR > 60 ML/MIN (>=60 (CALC)); GFR FOR AFR.AMER. > 60 ML/MIN (>=60 (CALC)); MAGNESIUM 1.4 mg/dL (1.6-2.3); SODIUM 139 mmol/l (137-146)
[2019-05-03 05:21] LABS: ANION GAP 14 (6-22 (CALC)); POTASSIUM 3.9 mmol/l (3.5-5.1)
--- NOTE | 2019-05-03 08:35 | NUR ---
ASSESSMENT IS COMPLETED: IV SITE IS FREE FROM REDNESS OR EDEMA. HR IS REG,PULSES ARE STRONG X4, ABD IS SOFT WITH ACTIVE BS.BREATH SOUNDS ARE CLEAR,BILATERALLY, CONTINUE TO OSBERVE AND MONITOR.
--- NOTE | 2019-05-03 10:00 | NUR ---
PT REFUSED HER MEDICATIONS THIS AM, " WANTING TO GO TO THE STORE".
--- NOTE | 2019-05-03 11:00 | NUR ---
PT PULLSED HER IV SITE OUT. ATTEMPT TO RESTART BY LATONYA RN ,UNSUCCESSFUL.
--- NOTE | 2019-05-03 12:30 | NUR ---
PT HAS BEEN RELAXING IN BED WITH NO DISTRESS NOTED . IV SITE WAS REMOVED BY PT AT 11AM. INFORMED DR. REY RE: ATTEMPTS MADE OT RESTART. WILL TRY AGAIN
--- NOTE | 2019-05-03 15:20 | NUR ---
PT IS RELAXING IN BED WITH NO DISTRESS NOTED. CONTINUE TO OBSERVE AND MONITOR.
--- NOTE | 2019-05-03 16:15 | NUR ---
LATE ENTRY: PT HAS BEEN RESTING IN BED DID HAVE A LARGE BM. INCONTINENT. IV SITE IS FREE FROM REDNESS OR EDEMA. OBTAINED BY JULIO MATTHEW.
--- NOTE | 2019-05-03 16:30 | NUR ---
NEW IV SITE OBTAINED. BY Araceli MANDUJANO RN WITH #22 IN RAC. CONTINUE TO OBSERVE AND MONITOR.
--- NOTE | 2019-05-03 19:39 | NUR ---
PT RESTING IN BED, NO SIGNS OF DISTRESS NOTED, RESP EVEN AND UNLABORED. PT ALERT TO SELF, STATES SHE IS AT HOME, REORIENTED PT TO PLACE, INTRODUCED SELF TO PT, DISCUSSED POC, PT VERBALIZED UNDERSTANDING. IVF INFUSING, PT TOOK MEDICATION CRUSHED WITH APPLESAUCE. ASSESSMENT COMPLETED, CALL LIGHT IN REACH,CONTINUE TO MONITOR.
[2019-05-04] VITALS (7 sets, daily range): BP systolic 147–181; BP diastolic 86–99
--- NOTE | 2019-05-04 00:03 | NUR ---
PT RESTING IN BED WITH EYES CLOSED, RESP EVEN AND UNLABORED. CALL LIGHT IN REACH,CONTINUE TO MONITOR.
--- NOTE | 2019-05-04 03:58 | NUR ---
PT CALLING OUT ASKING FOR WATERMELON, INFORMED PT THAT THERE IS NO WATERMELON BUT CAN HAVE APPLESAUCE,JELLO,OR PUDDING, PT DECLINED. CALL LIGHT IN REACH, BED ALARM FOR SAFETY, CONTINUE TO MONITOR.
--- NOTE | 2019-05-04 06:05 | NUR ---
PT CONTINUES TO YELL OUT ASKING FOR FAMILY MEMBER, REORIENTED PT TO ROOM AND CALL LIGHT, BED ALARM FOR SAFETY, CALL LIGHT IN REACH, CONTINUE TO MONITOR.
--- NOTE | 2019-05-04 08:00 | NUR ---
ASSESSMENT IS COMPLTED: IV SITE IS FREE FROM REDNESS OR EDMEA. HR IS REG,PULSES ARE STRONG X4, ABD IS SOFT WITH ACTIVE BS. BREATH SOUNDS ARE CLEAR,BILATERALLY. TELE MONITOR IN PLACE. CONTINUE TO OSBERVE AND MONITOR.
--- NOTE | 2019-05-04 12:15 | NUR ---
BP WSA HIGH AGAIN 181/99 INQUIRED IF THE RN ON THE UNIT WOULD GIVE APPRESOLINE FOR ME. THEN THE BP WENT TO 149/86 IN 1 HOUR
--- NOTE | 2019-05-04 12:45 | NUR ---
PT IS RELAXING IN BED WITH NO DISTRESS NOTED IV SITE IS FREE FROM RENDESS OR EDMEA.
--- NOTE | 2019-05-04 12:50 | NUR ---
PLACED A CALL TO HER DAUGHTER RE: PT IS CALLING OUT FOR THE FAMILY MEMBERS.WILL HAVE AN AUNT COME AND ATTEMPT TO FEED PT.
--- NOTE | 2019-05-04 12:50 | NUR ---
ABLE TO FEED PT SOME OF HER LUNCH, CONTDorindaUES TO CALL OUT FOR "CHELSIE"
--- NOTE | 2019-05-04 16:45 | NUR ---
DR. REY CMEA AND CHANGED THE AMOUNT TO HER IV FLUIDS TO 10CC HR. IV SITE IS FREE FROM REDNESS OR EDEMA. CONTINUE TO OSBERVE AND MONITOR.
--- NOTE | 2019-05-04 18:33 | NUR ---
FAMILY IN THE ROOM ASSISTING ON FEEDING PT. MORE RECEPTIVE TO FAMILY.
--- NOTE | 2019-05-04 19:00 | NUR ---
REPORT RECEIVED FROM ROBB VASQUEZ.
--- NOTE | 2019-05-04 19:50 | NUR ---
PT RESTING IN BED SEMI FOWLERS AND POSITIONED WITH PILLOWS; EYES ARE CLOSED AND NO SIGNS OF DISTRESS. PT BLINKING AND RESPONDS TO VERBAL STIMULI. ORIENTED TO PERSON/, AND PLACE. DENIES PAIN. RESPIRATIONS EVEN AND UNLABORED ON ROOM AIR. PT CONFIRMS BLINDNESS; FOLLOWS ALL COMMANDS AND ALL EXTREMITIES OBEY COMMANDS; SHE DOES NEED ASSISTANCE WITH TURNING AND REPOSITIONING. LUNGS ARE CLEAR; ABDOMEN IS DISTENDED AND SOFT WITH SOME TENDERNESS PROBABLY R/T POSSIBLE UMBILICAL HERNIA; NECROTIC ULCER NOTED TO BOTTOM LATERAL ASPECT OF LEFT FOOT; PHOTO OBTAINED AND PLACED IN CHART. PLAN OF CARE REVIEWED. PT ENCOURAGED TO VERBALIZE CONCERNS. STATES UNDERSTANDING. SAFETY MEASURES IN PLACE. CALL LIGHT WITHIN REACH.
--- NOTE | 2019-05-04 22:00 | NUR ---
APRESOLINE GIVEN WITH HS MEDICATIONS FOR ELEVATED BLOOD PRESSURE.
[2019-05-05] VITALS (7 sets, daily range): BP systolic 122–188; BP diastolic 77–109
--- NOTE | 2019-05-05 00:31 | NUR ---
PT OCCASIONALY WAKES UP AND YELLS OUT FOR FAMILY MEMBERS REPEATEDLY; NO DISTRESS OR PAIN AT THESE TIMES; FALLS BACK TO SLEEP EASILY. APRESOLINE WAS EFFECTIVE TEMPORARILY; NOW BLOOD PRESSURE SLIGHTLY ELEVATED AGAIN. WILL CONTINUE TO MONITOR.
--- NOTE | 2019-05-05 02:08 | NUR ---
APRESOLINE GIVEN NOW. IV SITE FLUSHED. PT TURNED AND REPOSITIONED. NEEDS ARE ANTICIPATED BY STAFF.
--- NOTE | 2019-05-05 03:34 | NUR ---
PT PULLED OFF TELEMETRY; REORIENTED AND CASING SOAKER REAPPLIED. IV FLUIDS CONTINUE TO INFUSE WITHOUT DIFFICULTY. PT INCONTINENT OF URINE. NEEDS ARE ANTICIPATED BY STAFF.
--- NOTE | 2019-05-05 05:59 | NUR ---
PT CONTINUES TO RANDOMLY CALL OUT FOR FAMILY MEMEBERS AND THEN BEGAN SHOUTING, "LET ME OUT OF HERE. I PANCHO CALL THE POLICE." PT REORIENTED. TOOK PO MEDICATIONS WITHOUT DIFFICULTY. BLOOD PRESSURE WNL. BED ALARM ON.
--- NOTE | 2019-05-05 08:40 | NUR ---
PT RESTING IN BED. A&O TO SELF. REORIENTED PT TO PLACE AND TIME.LEGALLY BLIND. OBEYS COMMANDS. BREATHING EVEN AND UNLABORED. DISCUSSED POC. ZHAO CARE & BARRIER CREAM APPLIED. REPOSITIONED PT. HEEL BOOT APPLIED TO PT. CALL LIGHT WITHIN REACH. CONTINUE TO MONITOR.
--- NOTE | 2019-05-05 12:17 | NUR ---
PT IN BED RESTING. IV ROCEPHIN STARTED. ASSISTED PT TO RECLINER AT BEDSIDE. BED ALARM PLACED. CALL LIGHT IN REACH. CONTINUE TO MONITOR.
--- NOTE | 2019-05-05 16:12 | NUR ---
PT RESTING IN BED. NO FURTHER NEEDS AT THIS TIME. CONTINUE TO MONITOR.
--- NOTE | 2019-05-05 17:28 | NUR ---
PT RESTING IN BED. NO FURTHER NEEDS AT THIS TIME. CALL LIGHT WITHIN REACH. CONTINUE TO MONITOR.
--- NOTE | 2019-05-05 22:15 | NUR ---
PT MEDICATED ORDERS PROVIDE/PILLS CRUSHED W/APPLESAUCE. PT REPOSITIONED AT THIS TIME. HEEL PROTECTORS ON/JOURNALISTS AND OTHER WRITERS IN TO SEE PT, ULCER WOUND TO L.FOOT ULCER OUTSIDE OF FOOT. FEET ELEVATED W/PILLOWS X2. PT LOC TO SELF ONLY, ASKING FOR FAMILY MEMBER/REORIENTED TO CIRCUMSTANCES MUCH POSSIBLE. NO OTHER S/O DISTRESS NOTED AT THIS TIME. BED ALARM ON.
--- NOTE | 2019-05-06 00:50 | NUR ---
PT CLEANED OF INCONTINENT URINE AND REPOSITIONED. PT TOLERATED WELL. V/S ASSESSED AND PT ASSISTED IN EATING APPLESAUCE AND PO FLUIDS. BED ALARM ON.
[2019-05-06 00:55] VITALS: BP 118/76
[2019-05-06 01:10] VITALS: BP 118/76
[2019-05-06 05:20] VITALS: BP 139/84
--- NOTE | 2019-05-06 05:31 | NUR ---
PT MEDICATED ORDERS PROVIDE. PT ASSISTED EATING APPLESAUCE AND DRINKING PO FLUIDS. NO S/O DISTRESS. EYES CLOSED, TV ON W/SOUND. CALL LIGHT W/IN REACH AND BED ALARM ON.
--- NOTE | 2019-05-06 07:53 | NUR ---
PT RESTING IN BED. A&O TO SELF. REORIENTED PT. BREATHING EVEN AND UNLABORED. DISCUSSED POC. ASSESSMENT COMPLETED. CONTINUE TO MONITOR.
[2019-05-06 07:57] VITALS: BP 123/82
[2019-05-06 11:05] VITALS: BP 116/75
--- NOTE | 2019-05-06 12:00 | NUR ---
PT RESTING IN BED. IV REMOVED DUE TO OCCLUSION. CATHETER INTACT UPON REMOVAL. PT TOLERATED WELL. NO FURHTER NEEDS AT THE TIME. CALL LIGHT WITHIN REACH. CONTINUE TO MONITOR.
--- NOTE | 2019-05-06 14:04 | NUR ---
PT RESTING/SLEEPING IN BED. FAMILY MEMBER AT BEDSIDE.CALL LIGHT WITHIN REACH. CONTINUE TO MONITOR.
[2019-05-06 15:28] VITALS: BP 127/78
[2019-05-06] MEDS ORDERED: KEFLEX500 MG PO (15:30)
== END 2019-05-06 16:46 | DRG 689 ==
LOC: ED 22:32 → ED-I 05-02 00:26 → ED 05-02 00:43 → MS2 05-02 00:44
PROVIDERS: Emergency Medicine; Nurse Practitioner Family; ADMIT Internal Medicine; ATTEND Internal Medicine
DX: N39.0 Urinary tract infection, site not specified (principal); G93.41 Metabolic encephalopathy; I12.9 Hypertensive chronic kidney disease with stage 1 through stage 4 chronic kidney disease, or unspecified chronic kidney disease; E11.22 Type 2 diabetes mellitus with diabetic chronic kidney disease; N18.3 Chronic kidney disease, stage 3 (moderate); H54.8 Legal blindness, as defined in USA; H40.9 Unspecified glaucoma; K21.9 Gastro-esophageal reflux disease without esophagitis; E03.9 Hypothyroidism, unspecified; E78.5 Hyperlipidemia, unspecified; E83.42 Hypomagnesemia; B96.20 Unspecified Escherichia coli [E. coli] as the cause of diseases classified elsewhere; R32 Unspecified urinary incontinence; L98.9 Disorder of the skin and subcutaneous tissue, unspecified
CPT/HCPCS: J3475

== ENCOUNTER 2019-06-04 11:46 | Emergency (ER) | payer MEDICARE, BC, MEDICAID ==
[~2019-06-04] VITALS: Ht 167.6 cm; Wt 79.5 kg
[~2019-06-04 11:46] MED LIST changes: +ALENDRONATE SOD70 MG PO; +KEFLEX500 MG PO
[2019-06-04 12:47] LABS: HEMATOCRIT 34.7 % (37.0-47.0); HEMOGLOBIN 10.7 g/dl (12.0-16.0); IMMATURE GRANULOCYTES 0.6 % (0.0-5.0); MEAN CELL VOLUME 91.1 fL CALC (80.0-100.0); MEAN CORPUSCULAR HGB 28.1 pG CALC (26.0-32.0); MEAN CORPUSCULAR HGB CONC 30.8 g/L CALC (32.0-36.0); NEUT# 6.06 thou/uL (2.00-7.15); RED BLOOD COUNT 3.81 mill/uL (4.20-5.60); RED CELL DISTRI WIDTH 15.6 % (11.5-15.5)
[2019-06-04 13:08] LABS: ALBUMIN 3.9 g/dL (3.2-5.0); ALKALINE PHOSPHATASE 71 u/l (38-126); ANION GAP 16 (6-22 (CALC)); BILIRUBIN, TOTAL 0.5 mg/dL (0.0-1.4); BUN 25 mg/dL (8-23); BUN/CREATININE RATIO 24 (12-20 (CALC)); CARBON DIOXIDE 25 mmol/l (22-30); CHLORIDE 102 mmol/l (95-108); GFR 52 ML/MIN (>=60 (CALC)); GFR FOR AFR.AMER. > 60 ML/MIN (>=60 (CALC)); LIPASE 245 u/l (23-300); POTASSIUM 5.1 mmol/l (3.5-5.1); SGOT/AST 24 u/l (9-36); SODIUM 138 mmol/l (137-146); TOTAL PROTEIN 7.4 g/dL (6.3-8.2)
[2019-06-04 13:17] LABS: URINE BILIRUBIN - DIPSTICK NEGATIVE (NEGATIVE); URINE BLOOD DIPSTICK NEGATIVE (NEGATIVE); URINE COLOR YELLOW; URINE GLUCOSE - DIPSTICK NEGATIVE (NEGATIVE); URINE KETONE NEGATIVE (NEGATIVE); URINE LEUK ESTERASE NEGATIVE (NEGATIVE); URINE NITRITE - DIPSTICK NEGATIVE (Negative); URINE PH 7.5 (4.5-8.0); URINE PROTEIN - DIPSTICK NEGATIVE (NEG-TRACE); URINE UROBILINOGEN - DIPSTICK 0.2 E.U./dL (0.2)
[2019-06-04] MEDS ORDERED: MIRALAX3350 N1 PO (15:17)
[2019-06-04 17:35] VITALS: BP 145/84
== END 2019-06-04 17:35 ==
LOC: ED 11:46
PROVIDERS: Family Medicine
DX: K59.00 Constipation, unspecified (principal); E11.9 Type 2 diabetes mellitus without complications; I10 Essential (primary) hypertension

== ENCOUNTER 2020-02-21 09:43 | Emergency (ER) | payer MEDICARE, BC, MEDICAID ==
[~2020-02-21] VITALS: Ht 167.6 cm; Wt 68.2 kg
[~2020-02-21 09:43] MED LIST changes: +MIRALAX3350 N1 PO
[2020-02-21] MEDS ORDERED: METFORMIN HCL500 M1 PO (09:58)
[2020-02-21] MEDS ORDERED: JANUVIA50 MG PO (09:58)
[2020-02-21 10:44] LABS: HEMATOCRIT 34.3 % (37.0-47.0); HEMOGLOBIN 10.6 g/dl (12.0-16.0); IMMATURE GRANULOCYTES 0.2 % (0.0-5.0); MEAN CELL VOLUME 90.5 fL CALC (80.0-100.0); MEAN CORPUSCULAR HGB CONC 30.9 g/dL CAL (32.0-36.0); NEUT# 6.19 thou/uL (2.00-7.15); RED BLOOD COUNT 3.79 mill/uL (4.20-5.60); RED CELL DISTRI WIDTH 14.7 % (11.5-15.5)
[2020-02-21 10:57] LABS: ALBUMIN 3.6 g/dL (3.2-5.0); ALKALINE PHOSPHATASE 71 u/l (38-126); ANION GAP 15 (6-22 (CALC)); BUN 19 mg/dL (8-23); BUN/CREATININE RATIO 24 (12-20 (CALC)); CARBON DIOXIDE 25 mmol/l (22-30); CHLORIDE 104 mmol/l (95-108); CREATININE 0.8 mg/dL (0.5-1.0); GFR > 60 ML/MIN (>=60 (CALC)); GFR FOR AFR.AMER. > 60 ML/MIN (>=60 (CALC)); SGOT/AST 26 u/l (9-36); SODIUM 138 mmol/l (137-146); TOTAL PROTEIN 6.7 g/dL (6.3-8.2)
[2020-02-21 10:59] LABS: BILIRUBIN, TOTAL 0.4 mg/dL (0.0-1.4)
[2020-02-21 11:13] LABS: URINE BILIRUBIN - DIPSTICK NEGATIVE (NEGATIVE); URINE BLOOD DIPSTICK NEGATIVE (NEGATIVE); URINE COLOR YELLOW; URINE GLUCOSE - DIPSTICK NEGATIVE (NEGATIVE); URINE KETONE TRACE mg/dL (NEGATIVE); URINE LEUK ESTERASE TRACE (NEGATIVE); URINE NITRITE - DIPSTICK NEGATIVE (Negative); URINE PH 5.5 (4.5-8.0); URINE PROTEIN - DIPSTICK TRACE mg/dL (NEG-TRACE); URINE SPECIFIC GRAVITY 1.025; URINE UROBILINOGEN - DIPSTICK 0.2 E.U./dL (0.2)
[2020-02-21] MEDS ORDERED: [UNRECOGNIZED DRUG - OTHER] PO (12:41)
[2020-02-21] MEDS ORDERED: MIRALAX3350 N1 PO (12:41)
[2020-02-21 12:52] VITALS: BP 124/74
== END 2020-02-21 14:50 | disposition home or self-care (01) ==
LOC: ED 09:43
PROVIDERS: Student in an Organized Health Care Education/Training Program
DX: K59.00 Constipation, unspecified (principal); E86.0 Dehydration; E11.9 Type 2 diabetes mellitus without complications; I10 Essential (primary) hypertension; K21.9 Gastro-esophageal reflux disease without esophagitis; H54.7 Unspecified visual loss; Z79.84 Long term (current) use of oral hypoglycemic drugs; Z96.0 Presence of urogenital implants
CPT/HCPCS: Q9967

== ENCOUNTER 2020-07-25 12:46 | Observation (INO) | payer MEDICARE, BC, MEDICAID ==
[~2020-07-25] VITALS: Ht 167.6 cm; Wt 68.5 kg
[~2020-07-25 12:46] MED LIST changes: +METFORMIN HCL500 M1 PO; +[UNRECOGNIZED DRUG - OTHER] PO
--- NOTE | 2020-07-25 13:00 | NUR ---
PT TO ROOM VIA EMS STRETCHER FOR BEDSIDE TRIAGE
[2020-07-25 13:29] LABS: GFR 59 ML/MIN (>=60 (CALC)); GFR FOR AFR.AMER. > 60 ML/MIN (>=60 (CALC))
[2020-07-25 13:32] LABS: HEMOGLOBIN 10.3 g/dl (12.0-16.0); IMMATURE GRANULOCYTES 0.5 % (0.0-5.0); MEAN CELL VOLUME 86.8 fL CALC (80.0-100.0); MEAN CORPUSCULAR HGB 27.1 pG CALC (26.0-32.0); MEAN CORPUSCULAR HGB CONC 31.2 g/dL CAL (32.0-36.0); NEUT# 4.94 thou/uL (2.00-7.15); RED BLOOD COUNT 3.8 mill/uL (4.20-5.60)
[2020-07-25 13:41] LABS: PROTHROMBIN TIME 9.9 SECONDS (9.0-12.5)
[2020-07-25 13:43] LABS: URINE BILIRUBIN - DIPSTICK NEGATIVE (NEGATIVE); URINE BLOOD DIPSTICK MODERATE (NEGATIVE); URINE COLOR YELLOW; URINE GLUCOSE - DIPSTICK NEGATIVE (NEGATIVE); URINE KETONE NEGATIVE (NEGATIVE); URINE PROTEIN - DIPSTICK NEGATIVE (NEG-TRACE); URINE UROBILINOGEN - DIPSTICK 0.2 E.U./dL (0.2)
[2020-07-25 13:44] LABS: URINE BACTERIA MANY hpf; URINE EPITHELIAL CELLS MODERATE EPI/hpf (0-FEW); URINE LEUK ESTERASE SMALL (NEGATIVE); URINE NITRITE - DIPSTICK POSITIVE (Negative)
[2020-07-25 13:45] LABS: ALKALINE PHOSPHATASE 73 u/l (38-126); ANION GAP 12 (6-22 (CALC)); BILIRUBIN, TOTAL 0.4 mg/dL (0.0-1.4); BUN 29 mg/dL (8-23); BUN/CREATININE RATIO 36 (12-20 (CALC)); CARBON DIOXIDE 24 mmol/l (22-30); CHLORIDE 105 mmol/l (95-108); CREATININE 0.8 mg/dL (0.5-1.0); GFR > 60 ML/MIN (>=60 (CALC)); GFR FOR AFR.AMER. > 60 ML/MIN (>=60 (CALC)); LIPASE 411 u/l (23-300); POTASSIUM 4.8 mmol/l (3.5-5.1); SGOT/AST 27 u/l (9-36); SODIUM 137 mmol/l (137-146); TOTAL PROTEIN 7.8 g/dL (6.3-8.2)
[2020-07-25 13:51] LABS: MAGNESIUM 1.9 mg/dL (1.6-2.3)
--- NOTE | 2020-07-25 14:10 | NUR ---
Reassessment of patient completed. No distress noted.
[2020-07-25 14:15] LABS: TSH, 3RD GENERATION 6.76 uIU/mL (0.47 - 4.68)
--- NOTE | 2020-07-25 15:01 | NUR ---
Reassessment of patient completed. No distress noted.
[2020-07-25] MEDS ORDERED: NYSTOP100000 UNI (15:52)
[2020-07-25] MEDS ORDERED: ACETAMINOP160 MG/5 M PO (15:53)
--- NOTE | 2020-07-25 16:03 | NUR ---
Reassessment of patient completed. No distress noted.
--- NOTE | 2020-07-25 17:09 | NUR ---
Reassessment of patient completed. No distress noted.
--- NOTE | 2020-07-25 18:00 | NUR ---
REPORT GIVEN TO SHAWNA MATTHEW
[2020-07-25 18:10] VITALS: BP 179/111
--- NOTE | 2020-07-25 18:22 | NUR ---
TRANSPORTED TO ROOM 280 ON COR WITH RN
--- NOTE | 2020-07-25 19:15 | NUR ---
RECEIVED SHIFT CHANGE REPORT FROM DAN. MATTHEW. ASSUMED CARE OF PATIENT.
[2020-07-25 20:00] VITALS: BP 194/113
--- NOTE | 2020-07-25 20:00 | NUR ---
PATIENT IS LAYING IN BED IN HIGH MIGUEL WITH EYES CLOSED BUT RESPONSE TO VERBAL STIMULI. PATIENT IS A&O TO SELF BUT WAS CONFUSED ABOUT WHERE SHE WAS AND HOW SHE GOT HERE, REMINDED HER THAT SHE WAS [place] TO THE HOSPITAL [facility] BY HER DAUGHTER FOR UTI [place]. PATIENT WAS VERY COOPERATIVE AND PLEASENT DURING ASSESSMENT AND ABLE TO TAKE PILLS PO AND WHOLE W/O ANY COMPLICATION. RODRIGUEZ IN PLACE- PATENT, KINK FREE, AND DRAINING CLEAR YELLOW URINE INTO BSD. #20 G EMS IV SITE ON LAC- SALINE LOCKED, PATENT, CLEAN, DRY & INTACT; WILL PLAN TO CHANGE SITE DURING SHIFT. 1L OF NS HUNG AND INFUSING @ 100ML/HR PER MD ORDERS. TELE IN PLACE ORDERED. SAFETY MEASURE IN PLACE WITH CALL LIGHT IN REACH. NO CONCERNS OR NEEDS EXPRESSED, NO S/SX OF DISCOMFORT OR DISTRESSED OBSERVED, WILL CONTINUE TO MONITOR.
--- NOTE | 2020-07-25 23:30 | NUR ---
ROBB VALADEZ AT BEDSIDE ATTEMPTING TO PUT IN A NEW IV SO EMS SITE CAN BE D/C.
[2020-07-26] VITALS (7 sets, daily range): BP systolic 141–159; BP diastolic 86–99
--- NOTE | 2020-07-26 | NUR ---
2 ATTEMPT MADE TO PUT IN NEW IV SITE BY ROBB VALADEZ WERE UNSUCCESSFUL, WILL ALLOW PT TO REST FOR NOW, EMS SITE STILLIN PLACE FOR NOW AND PATENT, WITH IV FLUIDS INFUSING @ 100 ML/HR.
--- NOTE | 2020-07-26 00:56 | NUR ---
PATIENT HEARD CALLING OUT, NO S/SX OF DISTRESS OBSERVED, WHEN PATIENT ASKED WHAT WAS WRONG SHE STATED "I'M CALLING FOR MY SISTER." PATIENT REORIENTATED TO TIME AND PLACE AND REASSURED. NO NEEDS EXPRESSED, CALL LIGHT WITHIN REACH, WILL CONTINUE TO MONITOR.
--- NOTE | 2020-07-26 08:04 | NUR ---
PT SEEN RESTING IN THE BED, PLEASANT. NO CONFUSION NOTED AT THIS TIME. LUNGS CLEAR, RA.
--- NOTE | 2020-07-26 12:58 | NUR ---
PT ASSISTED WITH MEALS BY CECI HDZ. PT RESTS IN THE BED IN NO DISTRESS. SUPPOSITORY PLACED THIS MORNING PER ABUNDANT STOOL SEEN ON CT.
--- NOTE | 2020-07-26 16:07 | NUR ---
PT HEARD CALLING OUT FOR FAMILY MEMBERS. SHE WAS REORIENTED, BUT RETURNS TO CALLING OUT SEVERAL MINUTES LATER. PT IN NO DISTRESS, RESTS IN THE BED.
--- NOTE | 2020-07-26 19:00 | NUR ---
RECEIVED CHANGE OF SHIFT REPORT FROM VIPUL MATOS. ASSUMED CARE OF PATIENT.
--- NOTE | 2020-07-26 20:00 | NUR ---
PATIENT LAYING IN BED IN HIGH FOWLERS POSITION. A&O TO SELF, RE-ORIENTED TO PLACE, TIME AND CONDITION. ON ROOM AIR, RESP ARE EVEN AND NON-LARBORED. TELE IN PLACE. 20G EMS SITE LOCATED ON [facility], ATTEMPT TO START A NEW SITE HAVE BEEN UNSUCCESSFUL; NS IVF RUNNING @ 10ML/HR. SAFETY PERCAUTION IN PLACE, CALL LIGHT WITHIN REACH, WILL CONTINUE TO MONITOR.
--- NOTE | 2020-07-27 | NUR ---
PATIENT IS RESTING IN BED, NO S/SX OF DISTRESS OR DISCOMFORT OBSERVED, RESP ARE EVEN AND NON-LARBORED, CALL LIGHT WITHIN REACH, WILL CONTINUE TO MONITOR
--- NOTE | 2020-07-27 02:57 | NUR ---
PATIENT LAYING IN BED, RESTING IN SEMI MIGUEL, PILLOWS IN PLACE TO FOR COMFORT AND TO PREVENT BREAK DOWN. NO S/SX OF DISTRESS OR DISCOMFORT OBSERVED, RESP EVEN AND NON-LABORED. CALL LIGHT WITHIN REACH, WILL CONTINUE TO MONITOR.
[2020-07-27 04:00] VITALS: BP 129/83
--- NOTE | 2020-07-27 04:00 | NUR ---
PATIENT LAYING IN BED SLEEPING, RESP ARE EVEN & NON-LABORED. NO S/SX OF DISTRESS OR DISCOMFORT OBSERVED AT THIS, CALL LIGHT WITHIN REACH, WILL CONTINUE TO MONITOR.
[2020-07-27 05:28] LABS: HEMATOCRIT 32.3 % (37.0-47.0); HEMOGLOBIN 9.9 g/dl (12.0-16.0); MEAN CELL VOLUME 86.8 fL CALC (80.0-100.0); MEAN CORPUSCULAR HGB 26.6 pG CALC (26.0-32.0); MEAN CORPUSCULAR HGB CONC 30.7 g/dL CAL (32.0-36.0); RED BLOOD COUNT 3.72 mill/uL (4.20-5.60); RED CELL DISTRI WIDTH 15.7 % (11.5-15.5)
[2020-07-27 05:56] LABS: ANION GAP 12 (6-22 (CALC)); BUN 25 mg/dL (8-23); BUN/CREATININE RATIO 27 (12-20 (CALC)); CARBON DIOXIDE 23 mmol/l (22-30); CHLORIDE 104 mmol/l (95-108); CREATININE 0.9 mg/dL (0.5-1.0); GFR 59 ML/MIN (>=60 (CALC)); GFR FOR AFR.AMER. > 60 ML/MIN (>=60 (CALC)); MAGNESIUM 2.2 mg/dL (1.6-2.3); POTASSIUM 4.7 mmol/l (3.5-5.1); SODIUM 134 mmol/l (137-146)
[2020-07-27 07:25] VITALS: BP 133/86
--- NOTE | 2020-07-27 08:03 | NUR ---
PATIENT IS RESTING IN BED WITH NO S/S OF DISTRESS NOTED. ASSESSMENT DONE. TELE IN PLACE. RESPS EVEN AND UNLABORED.PATIENT IS A&O X1. PATIENT DENIES PAIN AT THIS TIME. RODRIGUEZ IS PATENT WITH GLORIA URINE. CALL LIGHT IN REACH.
--- NOTE | 2020-07-27 09:45 | NUR ---
ACCOUNTS PAYABLE SPECIALIST DID ZHAO CARE ON PATIENT. I APPLIED DOUDERM IN BUTTOCKS.
[2020-07-27 10:40] VITALS: BP 129/61
--- NOTE | 2020-07-27 10:44 | NUR ---
CALLED PATIENT DAUGHTER YAMILET ABOUT RODRIGUEZ. SHE IS UNSURE WHEN RODRIGUEZ WAS CHANGE. NOTIFIED HARINI ACOSTA.
--- NOTE | 2020-07-27 12:00 | NUR ---
ENTRY LEVEL IN ROOM FEEDING PATIENT. NO S/S OF DISTRESS NOTED ON PATIENT. TELE IN PLACE. CALL LIGHT IN REACH.
--- NOTE | 2020-07-27 13:05 | NUR ---
REMOVED PATIENT HOME RODRIGUEZ AND APPLIED A NEW RODRIGUEZ PER ORDER. PATIENT TOLERATED WELL. CALL LIGHT IN REACH.
[2020-07-27 14:40] VITALS: BP 140/86
--- NOTE | 2020-07-27 16:40 | NUR ---
PATIENT IS RESTING IN BED WITH NO S/S OF DISTRESS NOTED. PATIENT DENIES ANY NEEDS AT THIS TIME. STARTED A NEW IV #22 RAC IV FLUSH WELL AND BLOOD RETURN CALL LIGHT IN REACH.
[2020-07-27 19:40] VITALS: BP 174/100
--- NOTE | 2020-07-27 20:04 | NUR ---
PHYSICAL ASSESMENT COMPLETE. PT CURRENTLY DENIES PAIN OR DISCOMFORT. SCHEDULED MEDICATIONS AND PRN MEDICATION ADMINISTERED, SEE E-MAR. PT DENIES ANY NEEDS AT THIS TIME. PT REORIENTATED TO TIME AND PLACE. ITEMS WITHIN REACH, BED LOCKED IN LOW POSITION W/ BEDRAILS UP X2. CALL DENNIS WITHIN REACH, AGREES TO CALL PRN.
--- NOTE | 2020-07-27 23:59 | NUR ---
PT LAYING IN BED WITH EYES CLOSED, APPEARS TO BE SLEEPING, APPEARS COMFORTABLE AND IN NO DISTRESS. RESPIRATIONS REGULAR AND UNLABORED. ITEMS REMAIN WITHIN REACH, CALL DENNIS REMAINS WITHIN REACH. BED REMAINS LOCKED AND IN LOW POSITION WITH BEDRAILS UP X2. WILL CONTINUE TO MONITOR.
[2020-07-28] VITALS: BP 149/88
--- NOTE | 2020-07-28 03:51 | NUR ---
PT RESTING IN BED, NO SIGNS OF DISTRESS NOTED, RESP EVEN AND UNLABORED. PT VOICES NO NEEDS OR COMPLAINTS AT THIS TIME. CALL LIGHT IN REACH, CONTINUE TO MONITOR.
[2020-07-28 04:00] VITALS: BP 140/90
[2020-07-28 05:33] LABS: HEMATOCRIT 31.2 % (37.0-47.0); HEMOGLOBIN 9.6 g/dl (12.0-16.0); MEAN CELL VOLUME 86.4 fL CALC (80.0-100.0); MEAN CORPUSCULAR HGB 26.6 pG CALC (26.0-32.0); MEAN CORPUSCULAR HGB CONC 30.8 g/dL CAL (32.0-36.0); RED BLOOD COUNT 3.61 mill/uL (4.20-5.60); RED CELL DISTRI WIDTH 15.8 % (11.5-15.5)
[2020-07-28 06:05] LABS: ANION GAP 11 (6-22 (CALC)); BUN 25 mg/dL (8-23); BUN/CREATININE RATIO 29 (12-20 (CALC)); CARBON DIOXIDE 24 mmol/l (22-30); CHLORIDE 107 mmol/l (95-108); CREATININE 0.9 mg/dL (0.5-1.0); GFR 59 ML/MIN (>=60 (CALC)); GFR FOR AFR.AMER. > 60 ML/MIN (>=60 (CALC)); MAGNESIUM 2.2 mg/dL (1.6-2.3); POTASSIUM 4.5 mmol/l (3.5-5.1); SODIUM 137 mmol/l (137-146)
[2020-07-28 07:51] VITALS: BP 154/87
--- NOTE | 2020-07-28 07:55 | NUR ---
REPORT RECEIVED FROM VIPUL MAJANO. PT RESTING IN HIGH FOWLERS WITH EYES CLOSED AND HEAD LEANED BACK; POSITIONED WITH PILLOWS IN BED. PT SEEMS DROWSY AND DOES NOT OPEN EYES; BLIND WITH FIXED PUPILS. SPEECH IS VERY GARBLED; UNITELLIGABLE WHEN ASKING PT TO STATE NAME AND ; UNABLE TO ASSESS ORIENTATION STATUS. STATES NO WHEN ASKED IF SHE IS HAVING PAIN. RESPIRATIONS EVEN AND UNLABORED ON ROOM AIR; LUNGS CLEAR. ABDOMEN IS DISTENED AND FIRM; INCONTINENT OF BOWELS; HAS SOME MASD TO COCCYX; DUODERM IN PLACE, BUT NOT INTACT; REMOVED AT THIS TIME. HR REG WITH CLICK AUSCULTATED; WEAK PULSES; LEFT PEDAL PULSE FOUND WITH DOPPLER; LEFT FOOT WITH 2+ PITTING EDEMA AND CIRCULAR NECROTIC AREA TO LEFT BOTTOM SIDE. UNABLE TO PALPATE OR DOPPLER PULSE TO RIGHT FOOT, HOWEVER, FOOT IS WARM WITH CAP REFILL AND PT IS ABLE TO WIGGLE TOES AND HAS SENSATION; RIGHT POPILITEAL PULSE PALPABLE. FOOT DROP NOTED. SAFETY MEASURES IN PLACE. PT DOES NOT USE CALL LIGHT;NEEDS ARE ANTICIPATED BY STAFF.
--- NOTE | 2020-07-28 08:50 | NUR ---
DR. RODRIGUEZ AT BEDSIDE FOR WOUND CARE CONSULT. ASSESS COCCYX; NEW ORDER FOR ZINC OXIDE TO ENTIRE BUTTOCK DAILY AND PRN. PT ALSO INCONTENENT OF LARGE STOOL AT THIS TIME; HYGIENE PROVIDED INCLUDING RODRIGUEZ CARE.
--- NOTE | 2020-07-28 09:00 | NUR ---
SCREEN DONE. PT. MAY BENEFIT FROM P.T. AND O.T. EVAL.
--- NOTE | 2020-07-28 09:24 | NUR ---
DR. MAGANA AT BEDSIDE FOR EVAL; AWARE OF NURSES ASSESSMENT.
--- NOTE | 2020-07-28 09:42 | NUR ---
OFF UNIT VIA STRETCHER FOR PICC LINE PLACEMENT AND ULTRASOUND OF LOWER EXTREMITY.
--- NOTE | 2020-07-28 12:02 | NUR ---
RETURNED TO UNIT IN STABLE CONDITION VIA STRETCHER; MOVED FROM STRETCHER TO BED WITH 2 PERSON ASSIST. PT NOW HAS DOUBLE LUMEN PICC TO MELISA. MORE ALERT AND SITTING UP IN HIGH FOWLERS FOR LUNCH; REQUESTING SODA.
[2020-07-28] MEDS ORDERED: ERTAPENEM1 GM IV (13:13)
[2020-07-28] MEDS ORDERED: DIAPER RASH EX (13:38)
[2020-07-28 16:00] VITALS: BP 146/86
[2020-07-28 19:00] VITALS: BP 160/91
--- NOTE | 2020-07-28 20:30 | NUR ---
PATIENT RESTING IN BED WITH HER EYES CLOSED. PATIENT SPEAKS WHEN SPOKEN TO. ALERT AND ORIENTED TO SELF ONLY. PATIENT IS ABLE TO GIVE THE DATE OF HER BIRTHDAY BUT NOT THE YEAR. PATIENT ABLE TO TAKE HER MEDS IN VANILLA PUDDING. ACCU-CHECK TONIGHT WAS 134 AND NO COVERAGE WAS NEEDED. RODRIGUEZ CATH PATENT AND DRAINING YELLOW URINE. DOUBLE LUMEN PICC TO RIGHT UPPER ARM WITH NS PATENT AND INFUSING AT KVO RATE. SITE APPEARS HEALTHY AT THIS TIME. TELE MONITOR IN PLACE. CALL LIGHT IN REACH. WILL CONT TO MONITOR.
[2020-07-29] VITALS (8 sets, daily range): BP systolic 127–180; BP diastolic 50–98
--- NOTE | 2020-07-29 00:30 | NUR ---
PATIENT RESTING IN EBD WITH HOB ELEVATED AND EYES CLOSED. RESPS ARE EVEN AND UNLABORED. TELE MONITOR IN PLACE. RODRIGUEZ PATENT AND DRAINING YELLOW U RINE. IVF PATENT AND INFUSING VIA RIGHT UPPER ARM PICC AT KVO RATE. CALL LIGHT IN REACH. WILL CONT TO MONITOR.
--- NOTE | 2020-07-29 04:30 | NUR ---
PATIENT RESTING IN BED WITH EYES CLOSED. CALLS OUT OCC. ATTEMPTED TO REORIENT PATIENT TO PLACE. LAB WORK DRAWN FROM PATIENT DOUBLE LUMEN PICC-GOOD BLLOD RETURN AND FLUSHES FREELY WITH NS AND HEP SOLUTION. RODRIGUEZ PATENT AND DRAINIING GLORIA URINE. TELE MONITOR IN PLACE.INCONT OF MOD AMT OPF STOOL. ZHAO-CARE AND RODRIGUEZ CATH CARE WAS PROVIDED AND ZINC OXIDE APPLIED TO AFFECTED AREAS OF BREAKDOWN. TURNED AND REPOSITIONED. CALL LIGHT IN REACH. WILL CONT TO MONITOR.
[2020-07-29 05:13] LABS: HEMATOCRIT 30.3 % (37.0-47.0); HEMOGLOBIN 9.5 g/dl (12.0-16.0); IMMATURE GRANULOCYTES 0.3 % (0.0-5.0); MEAN CELL VOLUME 87.1 fL CALC (80.0-100.0); MEAN CORPUSCULAR HGB 27.3 pG CALC (26.0-32.0); MEAN CORPUSCULAR HGB CONC 31.4 g/dL CAL (32.0-36.0); NEUT# 6.91 thou/uL (2.00-7.15); RED BLOOD COUNT 3.48 mill/uL (4.20-5.60); RED CELL DISTRI WIDTH 15.8 % (11.5-15.5)
[2020-07-29 05:31] LABS: ALBUMIN 3.4 g/dL (3.2-5.0); ALKALINE PHOSPHATASE 76 u/l (38-126); ANION GAP 11 (6-22 (CALC)); BILIRUBIN, TOTAL 0.4 mg/dL (0.0-1.4); BUN 19 mg/dL (8-23); BUN/CREATININE RATIO 24 (12-20 (CALC)); CARBON DIOXIDE 24 mmol/l (22-30); CHLORIDE 107 mmol/l (95-108); CREATININE 0.8 mg/dL (0.5-1.0); GFR > 60 ML/MIN (>=60 (CALC)); GFR FOR AFR.AMER. > 60 ML/MIN (>=60 (CALC)); SGOT/AST 16 u/l (9-36); SODIUM 138 mmol/l (137-146); TOTAL PROTEIN 6.8 g/dL (6.3-8.2)
--- NOTE | 2020-07-29 07:50 | NUR ---
ASSESSMENT IS COMPLETED: IV SITE IS FREE FROM REDNESS OR EDEMA. HR IS REG,PULSES ARE WEAK ON PEDAL, STRONG ON RADIAL, ABD IS SOFT WITH ACTIVE BS. BREATH SOUNDS ARE CLEAR,BILATERALLY, RODRIGUEZ DRAINING YELLOW URINE. TELE MONITOR IN PLACE.
[2020-07-29] MEDS ORDERED: ASPIRIN 81 LOW81 MG PO (08:04)
--- NOTE | 2020-07-29 10:25 | NUR ---
SPEAKING WITH A FAMILY MEMBER RE: DISCHARGE PLANNING AND TAKING MEDICATIONS.
--- NOTE | 2020-07-29 12:10 | NUR ---
DOG BEHAVIORIST IS CALLING ABOUT PT.
--- NOTE | 2020-07-29 12:45 | NUR ---
PT IS RELAXING IN BED WITH NO DISTRESS NTOED. IV SITE IS FREE FROM REDNESS OR EDEMA. PT IS REFUSING TO EAT HER MEALS.
--- NOTE | 2020-07-29 14:36 | NUR ---
INFORMED YAMILET THE DAUGHTER RE: DISCHARGE ON HOLD DUE TO INSURANCES. AND THE ANTIBIOTIC. VERBALIZED UNDERSTANDING.
--- NOTE | 2020-07-29 16:20 | NUR ---
PT IS RESTING IN BED WITH NO DISTRESS NOTED. IV SITE IS FREE FROM REDNESS OR EDEMA. CONTINUE TO OBSERVE AND MONITOR.
--- NOTE | 2020-07-29 19:52 | NUR ---
PATIENT RESTING IN BED WITH HOB ELEVATED-EYES ARE CLOSED. PATIENT RESPONDS WHEN SPOKEN TO. AWAKE ALERT-TAKING PO MEDS IN VANILLA PUDDING. RODRIGUEZ CATH PATENT AND DRAINING YELLOW URINE. DOUBLE LUMEN PICC TO RIGHT UPPER ARM INTACT WITH IVF NS PATENT AND INFUSING AT KVO RATE. TELE MONITOR IN PLACE. PATIENT DENIES ANY PAIN AT THIS TIME. SIDE RAILS ARE UPX2. BED IN LOW POSITION. CALL LIGHT IN REACH. WILL CONT TO MONITOR.
--- NOTE | 2020-07-29 21:00 | NUR ---
PATIENT RESTING IN MXZ-MIBB-OLCJC WAS 140-NO COVERAGE NEEDED. MERRUM HUNG VIA RIGHT UPPER ARM PICC ORDERED. MEDICATED PATIENT FOR SLEEP WITH SONATA 5MG PO. RODRIGUEZ PATENT AND DRAINING YELLOW URINE. TELE MONITOR IN PLACE. SIDERAILS UPX2. BED IN LOW POSITION. BED ALARM IN PLACE. CALL LIGHT IN REACH. WILL CONT TO MONITOR.
--- NOTE | 2020-07-30 00:24 | NUR ---
PATIENT RESTING IN BED WITH HOB ELEVATED AND EYES CLOSED. RESPS ARE EVEN AND UNLABORED. TELE MONITOR IN PLACE. RODRIGUEZ CATH PATENT AND DRAINING YELLOW URINE. IVF PATENT AND INFUSING VIA RAC PICC RIGHT UPPER ARM AT KVO RATE. BED ALARM IN PLACE FOR PATIENT SAFETY. CALL LIGHT IN REACH. WILL CONT TO MONITOR.
[2020-07-30 04:00] VITALS: BP 93/63
--- NOTE | 2020-07-30 04:15 | NUR ---
PATIENT RESTING IN BED AT THIS TIME WITH HER EYES CLOSED. RESPONDS WHEN SPOKEN TO-NO COMPLAINTS AT THIS TIME. TAKING PO FLUIDS WHEN OFFERED. LAB WORK DRAWN FROM RIGHT UPPER ARM PICC-GOOD BLOOD RETURN AND DLUSHED PER PROTOCOL WITH SALINE AND HEP SOLUTION. IVF NS PATENT AND INFUSING AT KVO RATE. RODRIGUEZ PATENT AND DRAINING YELLOW URINE. TELE MONITOR IN PLACE. SAFETY PRECAUTIONS REINFORCED. BED ALARM IN PLACE FOR PATIENT SAFETY. CALL LIGHT IN REACH. WILL CONT TO MONITOR.
[2020-07-30 05:39] LABS: HEMATOCRIT 28.7 % (37.0-47.0); HEMOGLOBIN 8.9 g/dl (12.0-16.0); MEAN CELL VOLUME 86.7 fL CALC (80.0-100.0); MEAN CORPUSCULAR HGB 26.9 pG CALC (26.0-32.0); RED BLOOD COUNT 3.31 mill/uL (4.20-5.60); RED CELL DISTRI WIDTH 15.6 % (11.5-15.5)
[2020-07-30 06:08] LABS: ANION GAP 9 (6-22 (CALC)); BUN 19 mg/dL (8-23); BUN/CREATININE RATIO 24 (12-20 (CALC)); CARBON DIOXIDE 26 mmol/l (22-30); CHLORIDE 106 mmol/l (95-108); CREATININE 0.8 mg/dL (0.5-1.0); GFR > 60 ML/MIN (>=60 (CALC)); GFR FOR AFR.AMER. > 60 ML/MIN (>=60 (CALC)); POTASSIUM 4.2 mmol/l (3.5-5.1); SODIUM 137 mmol/l (137-146)
[2020-07-30 07:45] VITALS: BP 137/82
--- NOTE | 2020-07-30 07:45 | NUR ---
RECIEVED REPORT FROM VIPUL SCHMIDT. PT RESTING IN SEMI FOWLERS POSITION UPON ENTERING ROOM. PT IS A/O X2. ASSESSMENT AND VITALS COMPLETED. BP 137/82, HR 77, O2 99% ON ROOM AIR. RESPIRATIONS ARE EVEN AND UNLABORED WTIH NO DISTRESS NOTED. HEART RHYTHM NORMAL WITH TELE IN PLACE, SR WITH VIVDC PER ER MONITORING. BOWEL SOUNDS ARE ACTIVE. RADIAL PULSES STRONG. PEDAL PULSES WEAK. DOUBLE LUMEN PICC FLUSHED WITH GOOD BLOOD RETURN, IVF INFUSING PER ORDER. RODRIGUEZ CATHATER IN PLACE, TUBING PATENT. HEAL PROTECTOR APPLIED. PT DENIES OF ANY PAINS OR DISCOMFORTS.ZINC OXIDE APPLIED TO MOISTURE CAUSED EXCORIATION. ALL SAFETY PRECAUTIONS ARE IN PLACE WITH CALL LIGHT IN REACH. WILL CONTINUE TO MONITOR.
[2020-07-30 11:00] VITALS: BP 153/87
--- NOTE | 2020-07-30 12:05 | NUR ---
PT SLEEPING IN SEMI FOWLERS POSITION. RESPIRATIONS ARE EVEN AND UNLABORED WITH NO DISTRESS NOTED. IVF INFUSING PER ORDER, SITE APPEARS HEALTHY AND PATENT. RODRIGUEZ CATHATER IN PLACE, TUBING PATENT. TELE MONITORING IN PLACE. NO SIGNS OF ANY PAINS OR DISCOMFORTS. ALL SAFETY PRECAUTIONS ARE IN PLACE WITH CALL LIGHT IN REACH. WILL CONTINUE TO MONITOR.
--- NOTE | 2020-07-30 14:28 | NUR ---
PT TURNED TO LEFT SIDE. RESPIRATIONS ARE EVEN AND ULABORED. ASSEMBLER FOR PULLER OVER HAND NOTFIED OF PT BEING DISCHARGED TO [facility] DUE TO NOT BEING ABLE TO GET ANTIBIOTICS AT HOME. PT INFORMED.
--- NOTE | 2020-07-30 15:31 | NUR ---
PHOTOGRAPHER AERIAL INFORMED THAT PT WILL BE DISCHARGED TO [facility] AT 1800. PT NOTFIED.
[2020-07-30 16:00] VITALS: BP 151/92
--- NOTE | 2020-07-30 17:03 | NUR ---
DAUGHTER EDUCATED ON DISCHARGE INSTRUCTIONS. PT VERBLAIZED UNDERSTANDING. DAUGHTER REQUESTED FOR PRESCRIPTIONS TO BE PRINT DUE TO NOT BEING ABLE TO TAKE MEDICATION PT FACILITY.
[2020-07-30 17:33] VITALS: BP 151/94
--- NOTE | 2020-07-30 17:40 | NUR ---
DOUBLE LUMEN IN MELISA FLUSHED WITH HEPARIN
--- NOTE | 2020-07-30 18:18 | NUR ---
REPORT GIVEN TO VIPUL KRISHNAMURTHY AT [facility].
--- NOTE | 2020-07-30 18:22 | NUR ---
DAUGHTER NOTIFIED OF PT DEPARTURE
== END 2020-07-30 18:20 ==
LOC: ED 12:46 → ED-I 13:21 → ED 17:18 → MS2 17:19
PROVIDERS: Family Medicine; Nurse Practitioner; ADMIT Internal Medicine; ATTEND Internal Medicine
PROC: 0T2BX0Z Change Drainage Device in Bladder, External Approach (ICD-10-PCS; principal; 2020-07-27)
PROC: 02HV33Z Insertion of Infusion Device into Superior Vena Cava, Percutaneous Approach (ICD-10-PCS; 2020-07-28)
PROC: B518ZZA Fluoroscopy of Superior Vena Cava, Guidance (ICD-10-PCS; 2020-07-28)
DX: N39.0 Urinary tract infection, site not specified (principal); G93.41 Metabolic encephalopathy; E86.0 Dehydration; K59.00 Constipation, unspecified; E11.9 Type 2 diabetes mellitus without complications; I10 Essential (primary) hypertension; S30.810A Abrasion of lower back and pelvis, initial encounter; R32 Unspecified urinary incontinence; R15.9 Full incontinence of feces; H54.8 Legal blindness, as defined in USA; E78.5 Hyperlipidemia, unspecified; E89.0 Postprocedural hypothyroidism; K21.9 Gastro-esophageal reflux disease without esophagitis; B96.20 Unspecified Escherichia coli [E. coli] as the cause of diseases classified elsewhere; X58.XXXA Exposure to other specified factors, initial encounter; Z96.0 Presence of urogenital implants; Z16.12 Extended spectrum beta lactamase (ESBL) resistance; Z79.84 Long term (current) use of oral hypoglycemic drugs; Z74.01 Bed confinement status; Z20.822 Contact with and (suspected) exposure to COVID-19
CPT/HCPCS: J1650; Q9967

== ENCOUNTER 2020-10-29 11:43 | Observation (INO) | payer MEDICARE, BC, MEDICAID ==
[~2020-10-29] VITALS: Ht 167.6 cm; Wt 69.0 kg
[~2020-10-29 11:43] MED LIST changes: +ACETAMINOP160 MG/5 M PO; +ASPIRIN 81 LOW81 MG PO; +DIAPER RASH EX; +ERTAPENEM1 GM IV; +NYSTOP100000 UNI
--- NOTE | 2020-10-29 11:43 | NUR ---
PT TO ROOM VIA EMS
[2020-10-29 12:22] LABS: HEMATOCRIT 30.2 % (37.0-47.0); HEMOGLOBIN 9.3 g/dl (12.0-16.0); IMMATURE GRANULOCYTES 0.2 % (0.0-5.0); MEAN CELL VOLUME 84.6 fL CALC (80.0-100.0); MEAN CORPUSCULAR HGB 26.1 pG CALC (26.0-32.0); MEAN CORPUSCULAR HGB CONC 30.8 g/dL CAL (32.0-36.0); NEUT# 5.94 thou/uL (2.00-7.15); RED BLOOD COUNT 3.57 mill/uL (4.20-5.60); RED CELL DISTRI WIDTH 17.1 % (11.5-15.5)
[2020-10-29 12:26] LABS: URINE BILIRUBIN - DIPSTICK NEGATIVE (NEGATIVE); URINE BLOOD DIPSTICK TRACE-LYSED (NEGATIVE); URINE COLOR YELLOW; URINE GLUCOSE - DIPSTICK NEGATIVE (NEGATIVE); URINE KETONE NEGATIVE (NEGATIVE); URINE LEUK ESTERASE MODERATE (NEGATIVE); URINE NITRITE - DIPSTICK POSITIVE (Negative); URINE PROTEIN - DIPSTICK NEGATIVE (NEG-TRACE); URINE SPECIFIC GRAVITY 1.025; URINE UROBILINOGEN - DIPSTICK 0.2 E.U./dL (0.2)
--- NOTE | 2020-10-29 12:30 | NUR ---
TREATMENTS COMPLETED AND PT IS BEING DISCONNECTED FOR TRIP TO CT. [facility] OF 0 BECAUSE DISABILITIES THAT ARE APPARENT, ARE WHAT EMS STATE TO BE BASELINE. ONLY ABNORMALITY IS DECREASED RESPONSIVENESS. AOX4
[2020-10-29 12:34] LABS: URINE BACTERIA MANY hpf; URINE RBC 0-2 RBC/hpf (0-5); URINE WBC 20-50 WBC/hpf (0-5)
[2020-10-29 12:37] LABS: ALBUMIN 3.7 g/dL (3.2-5.0); ALKALINE PHOSPHATASE 76 u/l (38-126); ANION GAP 14 (6-22 (CALC)); BILIRUBIN, TOTAL 0.5 mg/dL (0.0-1.4); BUN 23 mg/dL (8-23); BUN/CREATININE RATIO 24 (12-20 (CALC)); CARBON DIOXIDE 23 mmol/l (22-30); CHLORIDE 105 mmol/l (95-108); GFR 52 ML/MIN (>=60 (CALC)); GFR FOR AFR.AMER. > 60 ML/MIN (>=60 (CALC)); POTASSIUM 4.6 mmol/l (3.5-5.1); SGOT/AST 17 u/l (9-36); SODIUM 138 mmol/l (137-146); TOTAL PROTEIN 7.6 g/dL (6.3-8.2)
--- NOTE | 2020-10-29 13:17 | NUR ---
PT IS RECONNECTED TO MONITORING EQUIPMENT AFTER ARRIVAL FROM CT AND ANTIBIOTIC/FLUIDS REATTACHED
--- NOTE | 2020-10-29 14:30 | NUR ---
PT RESTING WITH EYES CLOSED
[2020-10-29] MEDS ORDERED: B121000 MCG PO (15:15)
[2020-10-29] MEDS ORDERED: CRANBERRY ORAL PO (15:17)
[2020-10-29] MEDS ORDERED: IPRATROPIU0.5 MG/3 M IN (15:17)
--- NOTE | 2020-10-29 15:45 | NUR ---
GAVE REPORT TO MARILYN
--- NOTE | 2020-10-29 15:54 | NUR ---
PT ARRIVED TO [facility] ROOM 271 VIA STRETCHER IN STABLE CONDITION ACCOMPAINED BY VIPUL FREEMAN. PT TRANSFERED FROM STRETCHER TO BED BY STAFF X4. PT IS A/O SELF AND VISUALLY IMPAIRED. ASSESSMENT AND VITALS COMPLETED. REPSIRATIONS ARE EVEN AND UNLABORED WITH NO DISTRESS NOTED ON ROOM AIR. LUNG SOUNDS ARE DIMINISHED. BOWEL SOUNDS ARE ACTIVE. HEART RHYTHM IS NORMAL WITH TELE IN PLACE, SR PER ER MONITORING. #20G EMS IN LH REMOVED DUE TO LEAKING. CATHATER STILL INTACT. #20G IN RAC FLUSHED, SITE APPEARS HEALTHY AND PATENT. FLUIDS STARTED PER ORDER. BLISTER NOTED TO RIGHT HEAL.NON ADHESIVE AND KRELEX REAPPLIED. SCABB NOTED TO LEFT FOOT. COCCYX REDDENED.RADIAL PULSES STRONG. PEDAL PULSES WEAK. NKDA ALLERGIES NOTED. ALLERGY BAND AND FALL RISK BAND APPLIED. RODRIGUEZ CATHATER IN PLACE. DAUGHTER STATES HOME HEALTH REPLACED ON 10/27/20. PT DENIES OF ANY PAINS OR DISCOMFORTS AT THIS TIME. ALL SAFETY PRECAUTIONS ARE IN PLACE WITH CALL LIGHT IN REACH. WILL CONTINUE TO MONITOR.
--- NOTE | 2020-10-29 15:55 | NUR ---
PT TRANSPORTED TO [facility] STABLE AND IN NO DISTRESS. CARE ASSUMED TO MARILYN Admission Note Report Given to: MARILYN Transported by: Wheelchair X Stretcher Transported with: X Nurse Transporter X Patent IV O2 X Coil Cleaner Location: ICU X MS2
--- NOTE | 2020-10-29 17:00 | NUR ---
ACCUCHECK RESULTING IN 50. ORANGE JUICE PROVIDED TO PT. STANDING ORDER FOR D10 SENT TO CARDINAL.
--- NOTE | 2020-10-29 17:20 | NUR ---
D10 BLOUS ADMINISTERING IN #20G RAC, SITE REMAINS HEALTHY AND PATENT.
--- NOTE | 2020-10-29 17:42 | NUR ---
D10 COMPLETED. REASSESSMENT OF ACCUCHECK REUSLTING IN 260.
--- NOTE | 2020-10-29 18:37 | NUR ---
PT REFUSES TO EAT AT THIS TIME. FOOD LEFT AT BEDSIDE TO ATTEMPT LATER IN AFTERNOON.
--- NOTE | 2020-10-29 18:55 | NUR ---
1854-Report given by ROBB Michele.
[2020-10-29 19:00] VITALS: BP 149/84
--- NOTE | 2020-10-29 19:40 | NUR ---
1939-Pt assessment complete. No s/s of distress. Denies pain. Refused feeding. Plan of care is to offer fluids and food during every encounter, [facility]'s consulted and are on board. Pt has diminished lung sounds and does appear drowsy. She was alert to self. Safety precautions in place. Bed low and locked. Call light and phone within reach. Pt will be frequently monitored during this shift.
--- NOTE | 2020-10-29 22:00 | NUR ---
2200-Merrem given. Offered fluids and small spoonfulls of pudding, pt refused. Offered to reposition her, she states "Im alright." Safety precautions in place. Reoriented to hospital and bed. Call light in hand. Bed low and locked. Call light and phone within reach. Will continue to monitor frequently.
--- NOTE | 2020-10-30 | NUR ---
0000-Pt lying in bed sleeping. Easily arousable. No s/s of distress. Bed low and locked. Call light and phone within reach. Safety precautions in place.
[2020-10-30 00:19] VITALS: BP 140/71
--- NOTE | 2020-10-30 03:00 | NUR ---
0300-Pt sleeping safely in bed. Easily arousable. No s/s of distress. Denies pain. Bed low and locked. Call light and phone within reach. Safety precautions in place.
--- NOTE | 2020-10-30 04:45 | NUR ---
0445-Pt sleeping in bed, easily to awaken. No s/s of distress. Denies pain. Offered sip of water, declined. Bed low and locked. Call light and phone within reach. Safety precautions in place.
[2020-10-30 04:56] VITALS: BP 156/79
[2020-10-30 05:43] LABS: HEMATOCRIT 30.7 % (37.0-47.0); HEMOGLOBIN 9.2 g/dl (12.0-16.0); MEAN CELL VOLUME 85.3 fL CALC (80.0-100.0); MEAN CORPUSCULAR HGB 25.6 pG CALC (26.0-32.0); RED BLOOD COUNT 3.6 mill/uL (4.20-5.60)
[2020-10-30 05:46] LABS: ANION GAP 14 (6-22 (CALC)); BUN 17 mg/dL (8-23); BUN/CREATININE RATIO 23 (12-20 (CALC)); CARBON DIOXIDE 23 mmol/l (22-30); CHLORIDE 104 mmol/l (95-108); CREATININE 0.8 mg/dL (0.5-1.0); GFR > 60 ML/MIN (>=60 (CALC)); GFR FOR AFR.AMER. > 60 ML/MIN (>=60 (CALC)); MAGNESIUM 1.7 mg/dL (1.6-2.3); POTASSIUM 4.4 mmol/l (3.5-5.1); SODIUM 137 mmol/l (137-146)
--- NOTE | 2020-10-30 06:00 | NUR ---
0600-Merrem medication administered. Pt sleeping yet arousable. Offered her fluids, she declined. Bed low and locked. Call light and phone within reach. Safety precautions in place.
[2020-10-30 07:31] VITALS: BP 163/87
--- NOTE | 2020-10-30 09:00 | NUR ---
PT SEEN AWAKE, DROWSY, ORIENTED X 1. PT IS FED MEALS PER INABILITY TO DO ON HER OWN, SWALLOWS WITHOUT DIFFICULTY. PT REPOSITIONED IN BED FOR SKIN PRESERVATION. FAMILY UPDATED ON PHONE.
[2020-10-30 11:00] VITALS: BP 114/79
--- NOTE | 2020-10-30 13:00 | NUR ---
PT SEEN BY DR TREVINO, WHO STATES RIGHT HEEL NEEDS APPLICATION OF DRYING AGENT SUCH SKIN PREP OR IODINE AND THEN COVERED WITH KERLIX, NO DRESSING OTHERWISE. PT TOLERATED WELL.
[2020-10-30 14:30] VITALS: BP 160/95
--- NOTE | 2020-10-30 16:50 | NUR ---
PT REMAINS AT REST IN THE BED, OCCASIONALLY HEARD TALKING TO HERSELF.
[2020-10-30 19:00] VITALS: BP 133/89
--- NOTE | 2020-10-30 19:35 | NUR ---
PT ASSESSMENT COMPLETED AND PT POSITIONED FOR COMFORT AND PRESSURE CARE. NO S/O DISTRESS NOTED. ASSISTED PT TO DRINK SMALL AMOUNT OF GLUCERNA AND SEVERAL BITES OF APPLE SAUCE. PO WATER ALSO PROVIDED, A FEW SIPS WERE TAKEN.
[2020-10-31] VITALS: BP 149/99
--- NOTE | 2020-10-31 01:19 | NUR ---
REPOSITIONED PT AND NEW IVF PLACED. NO S/O DISTRESS NOTED. PT LOCX3
--- NOTE | 2020-10-31 03:15 | NUR ---
PT SLEEPING, NO S/O DISTRESS NOTED AT THIS TIME. CALL LIGHT AT SIDE.
[2020-10-31 04:00] VITALS: BP 131/86
--- NOTE | 2020-10-31 05:30 | NUR ---
ACCU CHECK PERFORMED AND ASSESSED TO BE 105. PT CONFUSED ABOUT HER CIRCUMSTANCES OF WHERE SHE IS. I PROVIDED PT WITH PO FLUIDS, SHE ACCEPTED A COUPLE OF SIPS.
[2020-10-31 07:50] VITALS: BP 146/77
--- NOTE | 2020-10-31 07:50 | NUR ---
ASSESSMENT IS COMPLETED: IV SITE IS FREE FROM REDNESS OR EDEMA. HR IS REG,PULSES ARE STRONG X4, ABD IS SOFT WITH ACTIVE BS. BREATH SOUNDS ARE CLEAR BILATERALLY, RODRIGUEZ DRAINING GLORIA URINE. DRESSING ON FOOT IS CDI. HEEL PROTECTORS IN PLACE. CONTINUE TO OSBERVE AND MONITOR.
[2020-10-31 09:09] LABS: HEMATOCRIT 29.2 % (37.0-47.0); HEMOGLOBIN 8.8 g/dl (12.0-16.0); IMMATURE GRANULOCYTES 0.5 % (0.0-5.0); MEAN CELL VOLUME 85.1 fL CALC (80.0-100.0); MEAN CORPUSCULAR HGB 25.7 pG CALC (26.0-32.0); MEAN CORPUSCULAR HGB CONC 30.1 g/dL CAL (32.0-36.0); NEUT# 5.72 thou/uL (2.00-7.15); RED BLOOD COUNT 3.43 mill/uL (4.20-5.60); RED CELL DISTRI WIDTH 17.2 % (11.5-15.5)
--- NOTE | 2020-10-31 09:34 | NUR ---
PT STARTED TO MOAN ASKING WHATS WRONG STATED" MMY BACK HURTS".
[2020-10-31 09:54] LABS: ANION GAP 11 (6-22 (CALC)); BUN 22 mg/dL (8-23); BUN/CREATININE RATIO 29 (12-20 (CALC)); CARBON DIOXIDE 23 mmol/l (22-30); CHLORIDE 107 mmol/l (95-108); CREATININE 0.8 mg/dL (0.5-1.0); GFR > 60 ML/MIN (>=60 (CALC)); GFR FOR AFR.AMER. > 60 ML/MIN (>=60 (CALC)); POTASSIUM 4.7 mmol/l (3.5-5.1); SODIUM 136 mmol/l (137-146)
--- NOTE | 2020-10-31 09:54 | NUR ---
SPOKE WITH HER DAUGHTER SELENE INQUIRING WHAT IS GOING ON. INFORMED OF DR MADDISON CHING AND INFECTION GROWING IN HER URINE. WILL WAIT FOR THE CONSULT WITH INFECTIOUS DISEASE DR. WOULD LIKE TO KNOW WHAT WE ARE GOING TO DO WILL CALL BACK
--- NOTE | 2020-10-31 10:08 | NUR ---
DR ROBLES ON CONSULT. SPOKE WITH THE PT. WILL CHECK WITH ABT TO BE GIVEN.
[2020-10-31 10:55] VITALS: BP 156/76
[2020-10-31] MEDS ORDERED: FOSFOMYCIN TROME3 GM PO (11:36)
--- NOTE | 2020-10-31 12:00 | NUR ---
PT IS RELAXING IN BED WITH NO DISTRESS NOTED. IV SITE IS FREE FROM REDNESS OR EDEMA.
--- NOTE | 2020-10-31 14:40 | NUR ---
Discharge instructions given. Patient verbalizes understanding of same. Discharged in stable condition via Medical Transport to Home with *Other. All belongings sent with pt.
--- NOTE | 2020-10-31 14:47 | NUR ---
PT PICKED UP BY TRANSPORT TO GO HOME. IV SITE AND TELE OFF OF PT CATHETER INTACT.
== END 2020-10-31 14:45 | disposition home health service (06) ==
LOC: ED 11:43 → ED-I 14:15 → ED 14:27 → MS2 14:28
PROVIDERS: Family Medicine; Nurse Practitioner; ADMIT Internal Medicine; ATTEND Internal Medicine
DX: N39.0 Urinary tract infection, site not specified (principal); L89.610 Pressure ulcer of right heel, unstageable; G93.41 Metabolic encephalopathy; I10 Essential (primary) hypertension; E11.9 Type 2 diabetes mellitus without complications; E86.0 Dehydration; D64.9 Anemia, unspecified; E03.9 Hypothyroidism, unspecified; K21.9 Gastro-esophageal reflux disease without esophagitis; H54.7 Unspecified visual loss; E78.5 Hyperlipidemia, unspecified; B96.20 Unspecified Escherichia coli [E. coli] as the cause of diseases classified elsewhere; Z96.0 Presence of urogenital implants; Z16.12 Extended spectrum beta lactamase (ESBL) resistance; Z87.440 Personal history of urinary (tract) infections; Z74.01 Bed confinement status; Z79.84 Long term (current) use of oral hypoglycemic drugs; Z20.822 Contact with and (suspected) exposure to COVID-19
CPT/HCPCS: G0378; Q3014

== ENCOUNTER 2020-12-24 15:08 | Inpatient (IN) | payer MEDICARE, BC, MEDICAID ==
[~2020-12-24] VITALS: Ht 167.6 cm; Wt 76.0 kg
[~2020-12-24 15:08] MED LIST changes: +B121000 MCG PO; +CRANBERRY ORAL PO; +FOSFOMYCIN TROME3 GM PO; +IPRATROPIU0.5 MG/3 M IN
--- NOTE | 2020-12-24 15:08 | NUR ---
PATIETN TO ROOM VIA EMS AND PHYSICIAN NOTIFIED OF PATIENT STATUS
[2020-12-24 15:59] LABS: URINE BILIRUBIN - DIPSTICK NEGATIVE (NEGATIVE); URINE BLOOD DIPSTICK MODERATE (NEGATIVE); URINE COLOR YELLOW; URINE GLUCOSE - DIPSTICK NEGATIVE (NEGATIVE); URINE KETONE TRACE mg/dL (NEGATIVE); URINE PROTEIN - DIPSTICK 30 mg/dL (NEG-TRACE); URINE SPECIFIC GRAVITY 1.025; URINE UROBILINOGEN - DIPSTICK 0.2 E.U./dL (0.2)
[2020-12-24 16:01] LABS: URINE LEUK ESTERASE MODERATE (NEGATIVE); URINE NITRITE - DIPSTICK NEGATIVE (Negative)
[2020-12-24 16:12] LABS: URINE SQUAMOUS EPITHELIAL CELL FEW EPI/hpf (0-FEW)
[2020-12-24 16:13] LABS: URINE BACTERIA FEW hpf; URINE WBC >100 WBC/hpf (0-5); URINE YEAST MANY hpf
[2020-12-24 16:41] LABS: HEMATOCRIT 25.2 % (37.0-47.0); HEMOGLOBIN 7.7 g/dl (12.0-16.0); IMMATURE GRANULOCYTES 0.3 % (0.0-5.0); MEAN CELL VOLUME 82.9 fL CALC (80.0-100.0); MEAN CORPUSCULAR HGB 25.3 pG CALC (26.0-32.0); MEAN CORPUSCULAR HGB CONC 30.6 g/dL CAL (32.0-36.0); NEUT# 9.54 thou/uL (2.00-7.15); RED BLOOD COUNT 3.04 mill/uL (4.20-5.60); RED CELL DISTRI WIDTH 17.2 % (11.5-15.5)
[2020-12-24 16:53] LABS: ALBUMIN 3.4 g/dL (3.2-5.0); ALKALINE PHOSPHATASE 69 u/l (38-126); ANION GAP 15 (6-22 (CALC)); BUN 28 mg/dL (8-23); BUN/CREATININE RATIO 30 (12-20 (CALC)); CARBON DIOXIDE 19 mmol/l (22-30); CHLORIDE 107 mmol/l (95-108); CREATININE 0.9 mg/dL (0.5-1.0); GFR 59 ML/MIN (>=60 (CALC)); GFR FOR AFR.AMER. > 60 ML/MIN (>=60 (CALC)); LIPASE 182 u/l (23-300); POTASSIUM 4.4 mmol/l (3.5-5.1); SGOT/AST 20 u/l (9-36); SODIUM 138 mmol/l (137-146); TOTAL PROTEIN 7.5 g/dL (6.3-8.2)
[2020-12-24 16:57] LABS: BILIRUBIN, TOTAL 0.1 mg/dL (0.0-1.4)
--- NOTE | 2020-12-24 19:18 | NUR ---
RESPONDS TO COMMANDS. VERBALIZES SHORT PHARSES
--- NOTE | 2020-12-24 19:18 | NUR ---
PATIENT FOLLOWS COMMANDS AND VERBALIZES INTERMITTENTLY WITH SHORT PHRASES
--- NOTE | 2020-12-24 20:30 | NUR ---
PATIENT MOANING. REPORTS HEADACHE. PATIENT DID NOT RATE ON PAIN SCALE
--- NOTE | 2020-12-24 21:00 | NUR ---
PATIENT REPOSITIONED FOR COMFORT. FOLLOW IN USE WITH CLEAR YELLOW URINE. PATIENT CONTINUES TO MOAN. REPORTS THAT HEADACHE IS IMPROVING
--- NOTE | 2020-12-24 21:30 | NUR ---
UNABLE TO OBTAIN ZITHROMA FROM PYXIS. CHARGE NURSE UNSUCCESFUL WELL.
--- NOTE | 2020-12-24 21:38 | NUR ---
BLOOD GLUCOSE 126
--- NOTE | 2020-12-24 22:03 | NUR ---
REPORT GIVEN TO ELOISE FOR ADMISSION
--- NOTE | 2020-12-24 22:03 | NUR ---
TELEBOX 5142 IN USE
--- NOTE | 2020-12-24 22:10 | NUR ---
WHILE PATIENT BEING TAKEN UP TO FLOOR FOR ADMISION. PATIENT REPORTS THAT SHE LIVES AT HOME WITH , ADULT CHILD, AND [place]. PATIENT REPORTS THAT HOME NURSE SEES HER. MOANING STOPPED WHILE IN TRANSIT. WHILE ON ELEVATOR PATIENT BEGAN WITH AUDIBLE EXPIRATORY WHEEZE. ADMISSION NURSE NOTIFIED ON ARRIVAL TO FLOOR. PREVIOUS DIFFICULTY WITH OBTAINING ANTIBIOTIC IN ED. CHARGE NURSE ASSISTED. ON THIRD ATTEMPT MEDICATION WAS OBTAINED AND TAKEN UP TO FLOOR WITH PATIENT.
[2020-12-24 22:17] VITALS: BP 164/99
--- NOTE | 2020-12-24 22:20 | NUR ---
PT ARRIVED TO [facility] UNIT VIA STRETCHER ACCOMPANIED BY ED NURSE. PT APPEARS TO BE IN STABLE CONDITION AT THIS TIME. PT HAD TO BE TRANSFERRED TO THE BED FROM THE STRETCHER, SHE WAS UNABLE TO ASSIST. PT CLEANED OF SMALL SOFT STOOL AT THIS TIME. PICTURES TAKEN OF HEALED/CLOSED WOUND TO COCCYX/DRESSING FROM HOME WAS IN PLACE. SHE ALSO HAS A CLOSED WOUND UNSTAGABLE DUE TO ESCHAR COVERING IT. HEEL PROTECTORS WERE IN PLACE UPON ARRIVING TO THIS UNIT, PLACED BACK ON AND FEET ELEVATED TO FLOAT.
--- NOTE | 2020-12-24 23:15 | NUR ---
PT WAS UNABLE TO TELL ME WHERE SHE IS AND WHY. ATTEMPTS MADE TO REORIENT HER WERE MADE. PT IS PLEASANTLY CONFUSED AND IS ABLE TO ANSWER SOME OF MY QUESTIONS. PT DENIES FEELING SOB, WHEEZING CAN BE HEARD IN INSPIRATORY/EXPIRATORY LUNG SOUNDS. OXYGEN SAT 97%. WILL CONTINUE TO MONITOR. RODRIGUEZ CATHETER DRAINING TO GRAVITY.
[2020-12-24 23:29] VITALS: BP 144/85
[2020-12-25] VITALS (7 sets, daily range): BP systolic 157–184; BP diastolic 87–97
--- NOTE | 2020-12-25 00:12 | NUR ---
PT APPEARS TO BE RESTFULL, EYES ARE CLOSED. RESP EVEN AND NON-LABORED AT THIS TIME.
--- NOTE | 2020-12-25 04:12 | NUR ---
PT IS MAKING A LOUD HUMMING SOUND. V/S ASSESSED, WE REPOSITIONED HER, CHECKED FOR STOOL OUTPUT/CLEAN. I ASKED HER IF SHE HAD ANY PAIN, SHE REPLIED "NO," I OFFERED DRINK OF WATER, SHE REFUSED. I ASKED IF THERE WAS ANYTHING I COULD GET HER OR DO FOR HER, SHE REPLIED "NO".
--- NOTE | 2020-12-25 05:08 | NUR ---
LAB IS LEAVING ROOM AT THIS TIME, PT MEDICATED ORDERS PROVIDE AND V/S ASSESSED FOR RECHECK OF BP.
[2020-12-25 05:51] LABS: HEMATOCRIT 28.9 % (37.0-47.0); HEMOGLOBIN 8.8 g/dl (12.0-16.0); IMMATURE GRANULOCYTES 0.2 % (0.0-5.0); MEAN CELL VOLUME 82.6 fL CALC (80.0-100.0); MEAN CORPUSCULAR HGB 25.1 pG CALC (26.0-32.0); MEAN CORPUSCULAR HGB CONC 30.4 g/dL CAL (32.0-36.0); NEUT# 7.02 thou/uL (2.00-7.15); RED BLOOD COUNT 3.5 mill/uL (4.20-5.60); RED CELL DISTRI WIDTH 17.1 % (11.5-15.5)
[2020-12-25 06:03] LABS: ALBUMIN 3.3 g/dL (3.2-5.0); ALKALINE PHOSPHATASE 75 u/l (38-126); ANION GAP 13 (6-22 (CALC)); BUN 21 mg/dL (8-23); BUN/CREATININE RATIO 33 (12-20 (CALC)); CARBON DIOXIDE 20 mmol/l (22-30); CHLORIDE 110 mmol/l (95-108); CREATININE 0.6 mg/dL (0.5-1.0); GFR > 60 ML/MIN (>=60 (CALC)); GFR FOR AFR.AMER. > 60 ML/MIN (>=60 (CALC)); POTASSIUM 4.7 mmol/l (3.5-5.1); SGOT/AST 19 u/l (9-36); SODIUM 139 mmol/l (137-146); TOTAL PROTEIN 7.2 g/dL (6.3-8.2)
[2020-12-25 06:05] LABS: BILIRUBIN, TOTAL 0.2 mg/dL (0.0-1.4)
--- NOTE | 2020-12-25 09:05 | NUR ---
REPORT RECEIVED FROM ROBB VASQUEZ
[2020-12-25] MEDS ORDERED: OXYBUTYNIN CHLOR5 M1 PO (09:41)
[2020-12-25] MEDS ORDERED: SANTYL250 UNIT/G (09:49)
[2020-12-25] MEDS ORDERED: TRAMADOL HYDROC50 M1 PO (09:52)
[2020-12-25] MEDS ORDERED: DITROPAN5 MG/TA1 PO (10:00)
--- NOTE | 2020-12-25 10:20 | NUR ---
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;VS OBTAINED AND ASSESSMENT COMPLETED;PT DENIES ANY CURRENT PAIN OR DISCOMFORTS,PAIN SCALE AND REPORTING EDUCATED;RESPIRATIONS EVEN AND UNLABORED ON RA,CLEAR LUNG SOUNDS;ABDOMEN DISTENDED/SOFT ON PALPATION AND ACTIVE IN ALL 4 QUADRANTS;MIRLAX AND COLACE PROVIDED TO ASSIST IN BOWEL CARE;WEAK PEDAL PULSES WITH HEAL PROTECTORS IN PLACE AND BLE OFF LOADED ON A PILLOW;WOUND TO LEFT HEEL ARIS AND REDDENING NOTED TO COCCYX;RODRIGUEZ CATHETER PATENT DRAINING CLEAR/YELLOW URINE TO GRAVITY WITH EASE;TELE MONTIORING IN PLACE;#20G TO LAC INFUSING NS @ 100 ML/HR,SITE APPEARS HEALTHY;PT DENIES ANY ADDITIONAL NEEDS AND IS ENCOURAGED TO CALL FOR ASSISTANCE IF NEEDED;FALL PRECAUTIONS IN PLACE WITH BED IN THE LOWEST POSITION AND CALL LIGHT IN REACH;WILL CONTINUE TO MONITOR
--- NOTE | 2020-12-25 10:25 | NUR ---
AT BEDSIDE DISCUSSING POV.
--- NOTE | 2020-12-25 11:59 | NUR ---
AT BEDSIDE ASSESSING PATIENT
--- NOTE | 2020-12-25 13:00 | NUR ---
PT RESTING IN SEMI FOWLERS POSITION;RESPIRATIONS EVEN AND UNLABORED ON RA;PT DENIES ANY CURRENT PAIN OR DISCOMFORTS;IV SITE PATENT TO LAC;RODRIGUEZ CATHETER CONTINUES TO DRAIN TO GRAVITY;DRESSING APPLIED TO COCCYX PER WOUND CARE ORDERS;ACCUCHECK 119, NO COVERAGE NEEDED;RE-POSITIONED TO RIGHT SIDE AND HEELS REMAIN OFFLOADED;PT DENIES ANY ADDITIONAL NEEDS;FALL PRECAUTIONS REMAIN IN PLACE WITH BED IN THE LOWEST POSITION AND CALL LIGHT IN REACH;WILL CONTINUE TO MONITOR
--- NOTE | 2020-12-25 16:25 | NUR ---
PT RESTING IN SEMI FOWLERS POSITION;RESPIRATIONS EVEN AND UNLABORED ON RA;PT DENIES ANY CURRENT PAIN OR DISCOMFORTS;IV SITE PATENT INFUSING NS WITH EASE PER ORDER;PT DENIES ANY ADDITIONAL NEEDS;ENCOURAGED TO CALL FOR ASSISTANCE IF NEEDED;CALL LIGHT IN REACH;WILL CONTINUE TO MONITOR
--- NOTE | 2020-12-25 16:25 | NUR ---
PT RESTING IN SEMI FOWLERS POSITION;RESPIRATIONS EVEN AND UNLABORED ON RA;PT DENIES ANY CURRENT PAIN OR DISCOMFORTS;IV SITE PATENT INFUSING NS WITH EASE;TELE MONITORING IN PLACE;RODRIGUEZ CATHETER REMAINS PATENT DRAINING TO GRAVITY WITH EASE;PT CURRENT BP 181/97 HR 89, D.CARTEE ANRP NOTIFIED AND AWAITING NEW ORDERS;PT DENIES ANY ADDITIONAL NEEDS;ENCOURAGED TO CALL FOR ASSISTANCE IF NEEDED;CALL LIGHT IN REACH;WILL CONTINUE TO MONITOR
--- NOTE | 2020-12-25 16:45 | NUR ---
BP RE-CHECK 164/91 HR 90.
--- NOTE | 2020-12-25 19:16 | NUR ---
PT HEARD MOANING/HUMMING SOUNDS FROM HALLWAY, UPON TALKING WITH PT SHE APPEARED ALERT TO WHAT I WAS SAYING AND ASKING. PT STOPPED MAKING THE HUMMING NOISE WHILE I WAS TALKING WITH HER. I REPOSITIONED HER FOR COMFORT. C/O PAIN IN HEAD AND BACK. PT MEDICATED FOR PAIN AT THIS TIME ORDERS PROVIDE. PT SWOLLOWED PILLS WITHOUT DIFFICULTY. SHE STOPS MAKING NOISES WHEN YOU ARE TALKING TO HER, BUT PROCEEDS WITH MOANING SOUNDS LOUDLY WHEN YOU STOP TALKING TO HER. DENIED ANY OTHER NEEDS FROM ME AT THIS TIME THOUGHT. I REMINDED HER OF THE CALL LIGHT W/PRESSURE TAB FOR HER CONVENIENCE.
--- NOTE | 2020-12-25 20:25 | NUR ---
PT CALLED TO REPORT FEELING SHAKY, WEAK, AND "NOT RIGHT." HE JUST FINISHED DRINKING THE REST OF HIS GOLYTELY AND MIRILAX AND NOW IS ALSO NAUSEOUS. HE HAS BEEN SITTING ON THE BEDSIDE COMMODE SINCE I ARRIVED FOR MY SHIFT. I ENCOURAGED HIM TO GET BACK INTO THE BED, I PROVIDED A BRIEF FOR INCONTINENT OF STOOL WORRIES SO HE COULD RELAX A BIT IN THE BED. V/S STABLE AT THIS TIME, WE ALSO CHECKED HIS SUGAR @91. D51/2 RUNNING AT 75 AT THIS TIME. PT WAS ABLE TO STAND AND AMBULATE TO THE BED W/ONLY STANDBY ASSISTANCE. EMESIS BAGS ALSO PROVIDED. HE HAS PREVIOUSLY BEEN MEDICATED FOR NAUSEA RECENTLY.
--- NOTE | 2020-12-25 20:47 | NUR ---
PT MEDICATED ORDERS PROVIDE. SHE WAS HESITANT TAKING PILL THIS TIME, BUT ENDED UP ALLOWING ME TO MEDICATE HER. SHE DID NOT APPEAR TO HAVE DIFFICULTY SWALLOWING, SHE JUST QUIT RESPONDING TO MY REQUESTS AND REFUSED TO OPEN HER MOUTH, SHE EVENTUALLY I TALKED WITH HER AGREED TO OPEN HER MOUTH AND TAKE IT. SHE IS NO LONGER MOANING, APPEARS MORE COMFORTABLE AT THIS TIME. ANTIBIOTIC THERAPY IS RUNNING AT THIS TIME ORDERS PROVIDE.
--- NOTE | 2020-12-25 23:00 | NUR ---
PT BEGAN MAKING MOANING SOUNDS, UPON CHECKING ON PT SHE APPEARED TO WAKE UP TO MY TOUCH AND QUICKLY STATED, "WHAT?" I ASKED IF SHE WAS OKAY, IF SHE WAS HAVING PAIN OR DISCOMFORT, SHE SAID "NO." PT APPEARED TO BE SLEEPING AND NOW APPEARS TO BE RETURNING TO SLEEP. CALL LIGHT NEXT TO HER HAND AND BED ALARM IS ON. SHE HAS BEEN REPOSITIONED Q2.
--- NOTE | 2020-12-25 23:56 | NUR ---
DIRECTOR OF OFFICIATING REPORTED ELEVATED BP UPON 2330 CHECK. LABETALOL PULLED TO ADMINISTER, BP RECHECKED FOR ADMININISTRATION OF MEDICATION AND BP REASSESSED AT 160/90 MANUAL RIGHT ARM. PT IS SLEEPING.
[2020-12-26 03:37] VITALS: BP 201/98
--- NOTE | 2020-12-26 03:52 | NUR ---
PT MEDICATED FOR ELEVATED BP. WILL REASSESS.
[2020-12-26 04:30] VITALS: BP 168/74
[2020-12-26 05:56] LABS: HEMATOCRIT 26.9 % (37.0-47.0); HEMOGLOBIN 8.3 g/dl (12.0-16.0); MEAN CELL VOLUME 81.3 fL CALC (80.0-100.0); MEAN CORPUSCULAR HGB 25.1 pG CALC (26.0-32.0); MEAN CORPUSCULAR HGB CONC 30.9 g/dL CAL (32.0-36.0); RED BLOOD COUNT 3.31 mill/uL (4.20-5.60)
[2020-12-26 06:12] LABS: ANION GAP 12 (6-22 (CALC)); BUN 18 mg/dL (8-23); BUN/CREATININE RATIO 26 (12-20 (CALC)); CARBON DIOXIDE 24 mmol/l (22-30); CHLORIDE 103 mmol/l (95-108); CREATININE 0.7 mg/dL (0.5-1.0); GFR > 60 ML/MIN (>=60 (CALC)); GFR FOR AFR.AMER. > 60 ML/MIN (>=60 (CALC)); POTASSIUM 4.2 mmol/l (3.5-5.1); SODIUM 136 mmol/l (137-146)
--- NOTE | 2020-12-26 06:45 | NUR ---
REPORT FROM ELOISE MATTHEW. ASSUMED PT CARE.
[2020-12-26 07:34] VITALS: BP 103/92
--- NOTE | 2020-12-26 09:02 | NUR ---
FAMILY MEMBER CALLED [facility] VERIFIED. UPDATED AT THIS TIME.
--- NOTE | 2020-12-26 10:20 | NUR ---
ANTICIPATED DISCHARGE HOME TODAY WITH [facility], PER CASE MANAGEMENT FAMILY WILL NOT BE HOME UNTIL AFTER 3. TRANSPORT ARRANGED FOR 3:30.
[2020-12-26 10:31] VITALS: BP 176/106
--- NOTE | 2020-12-26 11:10 | NUR ---
SUSAN RN TO ADMINISTER IV LABETALOL FOR INCREASED BP. PER KARLA CASTREJON VAT TENDER OK TO ADMINISTER FOR CURRENT BP OF 176/106.
[2020-12-26] MEDS ORDERED: OMNICEF300 MG PO (11:49)
[2020-12-26] MEDS ORDERED: ZPAK PO (11:53)
[2020-12-26 14:00] VITALS: BP 186/110
[2020-12-26 15:42] VITALS: BP 155/82
--- NOTE | 2020-12-26 15:50 | NUR ---
IV site discontinued, cath intact. No edema , no redness, voices no discomfort.
--- NOTE | 2020-12-26 15:53 | NUR ---
DAUGHTER YAMILET IRVING CALLED WITH DISCHARGE INSTRUCTIONS. PT LEFT [facility].
== END 2020-12-26 15:48 | disposition home health service (06) | DRG 871 ==
LOC: ED 15:08 → ED-I 19:10 → ED 19:23 → MS2 19:24
PROVIDERS: Family Medicine; Nurse Practitioner; ADMIT Internal Medicine; ATTEND Internal Medicine
PROC: 0T2BX0Z Change Drainage Device in Bladder, External Approach (ICD-10-PCS; principal; 2020-12-24)
DX: A41.9 Sepsis, unspecified organism (principal); J18.9 Pneumonia, unspecified organism; T83.518A Infection and inflammatory reaction due to other urinary catheter, initial encounter; N39.0 Urinary tract infection, site not specified; I11.0 Hypertensive heart disease with heart failure; I50.9 Heart failure, unspecified; E11.9 Type 2 diabetes mellitus without complications; I25.10 Atherosclerotic heart disease of native coronary artery without angina pectoris; L89.610 Pressure ulcer of right heel, unstageable; E03.9 Hypothyroidism, unspecified; E78.5 Hyperlipidemia, unspecified; K59.00 Constipation, unspecified; K21.9 Gastro-esophageal reflux disease without esophagitis; F03.90 Unspecified dementia, unspecified severity, without behavioral disturbance, psychotic disturbance, mood disturbance, and anxiety; H54.7 Unspecified visual loss; H40.9 Unspecified glaucoma; D63.8 Anemia in other chronic diseases classified elsewhere; B96.89 Other specified bacterial agents as the cause of diseases classified elsewhere; Y84.6 Urinary catheterization as the cause of abnormal reaction of the patient, or of later complication, without mention of misadventure at the time of the procedure; Z74.01 Bed confinement status; Z79.84 Long term (current) use of oral hypoglycemic drugs; Z96.0 Presence of urogenital implants; Z20.822 Contact with and (suspected) exposure to COVID-19
CPT/HCPCS: G0378; J1650; Q9967

== ENCOUNTER 2021-01-12 10:23 | Inpatient (IN) | payer MEDICARE, BC, MEDICAID ==
[~2021-01-12] VITALS: Ht 152.4 cm; Wt 68.0 kg
[~2021-01-12 10:23] MED LIST changes: +DITROPAN5 MG/TA1 PO; +OMNICEF300 MG PO; +OXYBUTYNIN CHLOR5 M1 PO; +SANTYL250 UNIT/G; +TRAMADOL HYDROC50 M1 PO
--- NOTE | 2021-01-12 10:23 | NUR ---
PT ARRIVES VIA EMS STRETCHER TO ROOM.
--- NOTE | 2021-01-12 10:30 | NUR ---
PT RESTING IN BED, DAUGHTER AT BEDSIDE
[2021-01-12 11:13] LABS: HEMATOCRIT 29.3 % (37.0-47.0); IMMATURE GRANULOCYTES 0.2 % (0.0-5.0); MEAN CELL VOLUME 81.8 fL CALC (80.0-100.0); MEAN CORPUSCULAR HGB 25.1 pG CALC (26.0-32.0); MEAN CORPUSCULAR HGB CONC 30.7 g/dL CAL (32.0-36.0); NEUT# 9.44 thou/uL (2.00-7.15); RED BLOOD COUNT 3.58 mill/uL (4.20-5.60); RED CELL DISTRI WIDTH 17.9 % (11.5-15.5)
[2021-01-12 11:22] LABS: ALBUMIN 3.3 g/dL (3.2-5.0); ALKALINE PHOSPHATASE 53 u/l (38-126); AMYLASE 79 u/l (30-110); ANION GAP 13 (6-22 (CALC)); BUN 30 mg/dL (8-23); BUN/CREATININE RATIO 26 (12-20 (CALC)); CARBON DIOXIDE 22 mmol/l (22-30); CHLORIDE 107 mmol/l (95-108); CREATININE 1.2 mg/dL (0.5-1.0); ETHYL ALCOHOL 0 mg/dl (0-30); GFR 42 ML/MIN (>=60 (CALC)); GFR FOR AFR.AMER. 51 ML/MIN (>=60 (CALC)); LIPASE 222 u/l (23-300); POTASSIUM 3.9 mmol/l (3.5-5.1); SGOT/AST 22 u/l (9-36); SODIUM 138 mmol/l (137-146)
[2021-01-12 11:23] LABS: ACT PARTIAL THROMBO TIME 28.4 SECONDS (20.0-32.5); BILIRUBIN, TOTAL 0.5 mg/dL (0.0-1.4); INTERNATIONAL NORMALIZED RATIO 1.1 RATIO (0.7-1.3); MAGNESIUM 2.2 mg/dL (1.6-2.3); PROTHROMBIN TIME 11.1 SECONDS (9.0-12.5)
[2021-01-12 12:30] LABS: URINE BILIRUBIN - DIPSTICK NEGATIVE (NEGATIVE); URINE BLOOD DIPSTICK SMALL (NEGATIVE); URINE COLOR YELLOW; URINE GLUCOSE - DIPSTICK NEGATIVE (NEGATIVE); URINE KETONE NEGATIVE (NEGATIVE); URINE PH 5.5 (4.5-8.0); URINE PROTEIN - DIPSTICK 100 mg/dL (NEG-TRACE); URINE SPECIFIC GRAVITY 1.025; URINE UROBILINOGEN - DIPSTICK 0.2 E.U./dL (0.2)
[2021-01-12 12:31] LABS: URINE LEUK ESTERASE SMALL (NEGATIVE); URINE NITRITE - DIPSTICK NEGATIVE (Negative)
[2021-01-12 12:47] LABS: URINE SQUAMOUS EPITHELIAL CELL MODERATE EPI/hpf (0-FEW)
--- NOTE | 2021-01-12 12:49 | NUR ---
PT RESTING QUIETLY, NO COMPLAINTS, DAUGHTER AT BEDSIDE
--- NOTE | 2021-01-12 14:00 | NUR ---
PT RESTING IN BED PEACEFULLY, DAUGHTER AT BEDSIDE
--- NOTE | 2021-01-12 15:00 | NUR ---
PT RESTING WITH CALL LIGHT IN REACH.
--- NOTE | 2021-01-12 16:40 | NUR ---
GAVE REPORT TO OSEAS RN, TRANSPORTED PT TO FLOOR VIA STRETCHER
--- NOTE | 2021-01-12 16:45 | NUR ---
ARRIVED FROM THE ER VIA STREACHER. UNRESPONSIVE, ON RA. VS 137/90 100% RA PL 92 18 RESP. INTO BED WITH ASST NOTED OPENINGS TO THE BUTTOCKS, BLACKEND RIGHT HEAL. LEFT FOOT SMALL OPEN AREA. PICTURES TAKEN. TELE IN PLACE SR 90. RODRIGUEZ TO BEDSIDE DRAINAGE. REPOSITIONED FOR COMOFRT, SIDE RAILS UP CALL LIGHT IN REACH, BED LOCKED IN LOW POSITION, WILL CONTINUE TO MONITOR.
[2021-01-12 17:22] VITALS: BP 128/88
[2021-01-12 18:36] VITALS: BP 137/91
--- NOTE | 2021-01-12 18:46 | NUR ---
IV FLUIDS INFUSING NO CHANGE IN PT STATUS.
--- NOTE | 2021-01-12 22:33 | NUR ---
PHYSICAL ASSESMENT COMPLETE. PT CURRENTLY DENIES PAIN OR DISCOMFORT. SCHEDULED MEDICATIONS AND PRN MEDICATION ADMINISTERED, SEE E-MAR. PT DENIES ANY NEEDS AT THIS TIME. ITEMS WITHIN REACH, BED LOCKED IN LOW POSITION W/ BEDRAILS UP X2. CALL DENNIS WITHIN REACH, AGREES TO CALL PRN.
[2021-01-12 23:15] VITALS: BP 113/68
[2021-01-13 03:51] VITALS: BP 136/87
--- NOTE | 2021-01-13 03:59 | NUR ---
PT RESTING IN BED, NO SIGNS OF DISTRESS NOTED, RESP EVEN AND UNLABORED. PT VOICES NO NEEDS OR COMPLAINTS AT THIS TIME. CALL LIGHT IN REACH, CONTINUE TO MONITOR.
[2021-01-13 05:11] LABS: HEMATOCRIT 27.4 % (37.0-47.0); HEMOGLOBIN 8.5 g/dl (12.0-16.0); MEAN CELL VOLUME 82.5 fL CALC (80.0-100.0); MEAN CORPUSCULAR HGB 25.6 pG CALC (26.0-32.0); RED BLOOD COUNT 3.32 mill/uL (4.20-5.60); RED CELL DISTRI WIDTH 18.2 % (11.5-15.5)
[2021-01-13 05:24] LABS: ANION GAP 13 (6-22 (CALC)); BUN 31 mg/dL (8-23); BUN/CREATININE RATIO 31 (12-20 (CALC)); CARBON DIOXIDE 20 mmol/l (22-30); CHLORIDE 109 mmol/l (95-108); GFR 52 ML/MIN (>=60 (CALC)); GFR FOR AFR.AMER. > 60 ML/MIN (>=60 (CALC)); MAGNESIUM 2.1 mg/dL (1.6-2.3); POTASSIUM 4.1 mmol/l (3.5-5.1); SODIUM 138 mmol/l (137-146)
--- NOTE | 2021-01-13 07:05 | NUR ---
REPORT RECEIVED FROM VIPUL MAJANO
--- NOTE | 2021-01-13 07:10 | NUR ---
S: MARIELOS DÍAZ is a 89 F who presents with unstageable pressure ulcer of right heel, pneumonia, UTI, dehydration, and acute metabolic encephalopathy. She has a history of DM, HTN, GERD, Dementia, elevated cholesterol and thyroid, and is blind. All medications in patient's chart were reviewed. O: VS: BP 136/87, P 79 bpm, RR 18 bpm, T 96.6 F W 68 kg, HT 66 in, Scr= 1.2, CrCl= 40.9 ml/min A: Blood culture is pending. Urine culture is pending. P: Patient is on Zosyn 3.375g q6h. Vancomycin ordered for pharmacy to dose. Start Vancomycin 1250 IV Q24H. Vancomycin trough is drawn before the 4th dose on 01/15 at 2030. Vancomycin goal trough is between 15-20 mcg/ml. Pharmacy will follow and or advise on antibiotics use as needed.
[2021-01-13 08:26] VITALS: BP 107/69
--- NOTE | 2021-01-13 08:26 | NUR ---
PT RESTING ON RIGHT SIDE LAYING POSITION,NON-VERBAL;VS OBTAINED AND ASSESSMENT COMPLETED;PT MEDICATED WITH SCHEDILED PAIN MEDICATION PER ORDER;RESPIRATIONS EVEN AND UNLABORED ON RA,DIMINISHED LUNG SOUNDS;ABDOMEN SOFT ON PALPATION AND ACTIVE IN ALL 4 QUADRANTS;RODRIGUEZ CATHETER PATENT DRAINING TO GRAVITY WITH EASE; WEAK PEDAL PULSES;CONTRACTURES NOTED TO UPPER AND LOWER EXTREMITIES;WOUND TO LEFT HEAL LIBRARY CLERICAL ASSISTANT AND STAGE 1 ULCER TO COCCYX NOTED, PHOTOGRAPHS IN CHART;EMS #18G TO RAC FLUSHED AND PATENT,#20G TO LH INFUSING NS @ 100ML/HR,SITE APPEARS HEALTHY;TELE MONITORING IN PLACE;ACCUCHECK 119, NO COVERAGE NEEDED;PT RE-POSITIONED AT THIS TIME;ALL SAFETY PRECAUTIONS REMAIN IN PLACE WITH BED IN THE LOWEST POSITION AND BED ALARM ON FOR SAFETY;CALL LIGHT IN REACH;WILL CONTINUE TO MONITOR
--- NOTE | 2021-01-13 09:22 | NUR ---
AT BEDSIDE DISCUSSING POC.
[2021-01-13 11:13] VITALS: BP 110/59
--- NOTE | 2021-01-13 11:50 | NUR ---
PT RESTING IN SEMI FOWLERS POSITION WITH ANDREINA THOMPSON ASSISTING WITH FEED;RESPIRATIONS EVEN AND UNLABORED ON RA;NO S/S OF DISTRESS NOTED;TELE MONITORING IN PLACE;IV SITE PATENT INFUSING NS WITH EASE AND ABX STARTED AT THIS TIME;ACCUCHECK 152, PT COVERED WITH SLIDING SCALE INSULIN;ALL SAFETY PRECAUTIONS REMAIN IN PLACE WITH CALL LIGHT IN REACH;WILL CONTINUE TO MONITOR
--- NOTE | 2021-01-13 14:00 | NUR ---
[facility] REP AND DAUGHTER AT BEDSIDE
[2021-01-13 14:30] VITALS: BP 112/57
--- NOTE | 2021-01-13 15:45 | NUR ---
PT APPEARS TO BE SLEEPING;RESPIRATIONS EVEN AND UNLABORED ON RA;NO S/S OF DISTRESS NOTED;TELE MONITORING IN PLACE;IV SITE TO LH INFUSING NS @ 100ML/HR & EMS #18G TO RAC PATENT;RODRIGUEZ CATHETER PATENT DRAINING TO GRAVITY WITH EASE;ALL SAFETY PRECAUTIONS REMAIN IN PLACE WITH BED IN THE LOWEST POSITION AND CALL LIGHT IN REACH;WILL CONTINUE TO MONITOR
--- NOTE | 2021-01-13 17:01 | NUR ---
NOTIFIED OF URINE OUTPUT THIS SHIFT RESULTING IN ONLY 100CC, NO NEW ORDERS RECEIVED AT THIS TIME.WILL CONTINUE TO MONITOR
[2021-01-13 19:00] VITALS: BP 144/90
--- NOTE | 2021-01-13 20:30 | NUR ---
RECEIVED REPORT FROM NURSE NICOL, PATIENT RESTING IN BED, RESPONDS TO NAME WHEN CALLED, BUT IS NON VERBAL, HAS AN ONGOING IV ON LEFT HAND G20 WITH NS INFUSING AT 100CC/HR, EMS SITE ON RAC SALINE LOCK FLUSHES WELL, REMAINS ON TELE SR 75, BM 01/13 , LUNG SOUND CLEAR/DIMINISHED, WHILE DOING ASSESSMENT PATIENT HAD A BM AND DIAPER IS WET, NO OUTPUT ON THE URINE BAG, ABDOMEN DISTENDED, NEW CATHETER FR [address], SRAINING YELLOW CLEAR URINE, PATIENT TURNED AND REPOSITINED, CALL LIGHT IN PLACE.
[2021-01-14] VITALS: BP 125/76
--- NOTE | 2021-01-14 00:29 | NUR ---
PATIENT TURNED AND REPOSITIONED, FOAM DRESSING APPLIED TO COCCYX, CALL LIGHT AT REACH.
[2021-01-14 04:00] VITALS: BP 141/83
--- NOTE | 2021-01-14 04:00 | NUR ---
PATIENT TURNED AND REPOSITIONED, BREATHING EVEN UNLABORED, NO DISCOMFORTS NOTED AT THIS TIME, CALL LIGHT AT REACH.
[2021-01-14 06:36] LABS: HEMATOCRIT 30.9 % (37.0-47.0); HEMOGLOBIN 9.4 g/dl (12.0-16.0); MEAN CELL VOLUME 83.3 fL CALC (80.0-100.0); MEAN CORPUSCULAR HGB 25.3 pG CALC (26.0-32.0); MEAN CORPUSCULAR HGB CONC 30.4 g/dL CAL (32.0-36.0); RED BLOOD COUNT 3.71 mill/uL (4.20-5.60); RED CELL DISTRI WIDTH 18.8 % (11.5-15.5)
--- NOTE | 2021-01-14 07:05 | NUR ---
REPORT RECEIVED FROM VIPUL STEEN
[2021-01-14 07:10] LABS: ANION GAP 12 (6-22 (CALC)); BUN 27 mg/dL (8-23); BUN/CREATININE RATIO 30 (12-20 (CALC)); CARBON DIOXIDE 19 mmol/l (22-30); CHLORIDE 114 mmol/l (95-108); CREATININE 0.9 mg/dL (0.5-1.0); GFR 59 ML/MIN (>=60 (CALC)); GFR FOR AFR.AMER. > 60 ML/MIN (>=60 (CALC)); MAGNESIUM 2.4 mg/dL (1.6-2.3); SODIUM 141 mmol/l (137-146)
--- NOTE | 2021-01-14 07:57 | NUR ---
PRELIM BLOOD CX SHOWS GRAM POSITIVE COCCI IN 1. REPORTED TO KARLA. PT IS ON ZOSYN AND VANCOMYCIN. WILL F/U WITH FINAL RESULTS.
[2021-01-14 08:25] VITALS: BP 136/89
--- NOTE | 2021-01-14 08:25 | NUR ---
PT RESTING IN LEFT SIDE LAYING POSITION,NON-VERBAL;VS OBTAINED AND ASSESSMENT COMPLETED;RESPIRATIONS EVEN AND UNLABORED ON RA,CLEAR LUNG SOUNDS;ABDOMEN SOFT ON PALPATION AND ACTIVE IN ALL 4 QUADRANTS;RODRIGUEZ CATHETER PATENT DRAINING TO GRAVITY WITH EASE,LEG STRAP APPLIED TO RIGHT THIGH;WEAK PEDAL PULSES;BLE OFF LOADED ON PILLOW AND PT RE-POSITIONED TO LEFT SIDE;DRESSING TO COCCYX CDI;EMS #18G TO RAC FLUSHED AND PATENT, #20G TO LH INFUSING NS @ 100ML/HR,SITE APPEARS HEALTHY;TELE MONITORING IN PLACE;ACUCCHECK 139, NO COVERAGE NEEDED;ALL SAFETY PRECAUTIONS REMAIN IN PLACE WITH BED IN THE LOWEST POSITION AND BED ALARM ON FOR SAFETY;CALL LIGHT IN REACH;WILL CONTINUE TO MONITOR
--- NOTE | 2021-01-14 09:30 | NUR ---
AT BEDSIDE DISCUSSING POC.
--- NOTE | 2021-01-14 10:36 | NUR ---
[facility] REP AT BEDSIDE
--- NOTE | 2021-01-14 11:40 | NUR ---
PT RESTING IN SEMI FOWLERS POSITION WITH DAUGHTER AT BEDSIDE;RESPIRATIONS EVEN AND UNLABORED ON RA;NO S/S OF DISTRESS NOTED;IV SITE PATENT INFUSING NS WITH EASE PER ORDER,ABX STARTED AT THIS TIME;ACCUCHECK 132, NO COVERAGE NEEDED;RODRIGUEZ CATHETER PATENT DRAINING URINE TO GRAVITY WITH EASE;ALL SAFETY PRECAUTIONS IN PLACE WITH BED IN THE LOWEST POSITION AND CALL LIGHT IN REACH;WILL CONTINUE TO MONITOR
[2021-01-14 15:06] VITALS: BP 149/72
--- NOTE | 2021-01-14 15:25 | NUR ---
PT APPEARS TO BE SLEEPING IN SEMI FOWLERS POSITION;RESPIRATIONS EVEN AND UNLABORED ON RA;NO S/S OF DISTRESS NOTED;BOTH IV SITES PATENT AND NS INFUSING PER ORDER;RODRIGUEZ CATHETER DRAINING TO GRAVITY WITH EASE;ALL SAFETY PRECAUTIONS IN PLACE WITH BED IN THE LOWEST POSITION AND CALL LIGHT IN REACH;WILL CONTINUE TO MONITOR
[2021-01-14 18:53] VITALS: BP 173/95
--- NOTE | 2021-01-14 19:00 | NUR ---
RECEIVED REPORT FROM NURSE NICOL, PATIENT RESTING IN BED EYES CLOSED, CALL LIGHT AT REACH.
--- NOTE | 2021-01-14 20:00 | NUR ---
PATIENT APPEARS TO BE SLEEPING WITH EYES CLOSED, PATIENT IS NON VERBAL, RESPONDS TO PAIN STIMULI, OR WHEN NAMES BEING CALLED, HAS ONGOING IV NS @50CC/HR LT HAND G 20 INFUSING WELL, LUNGS SOUND CLEAR/DIMINISHED, ACTIVE BOWEL SOUNDS, ABDOMEN DISTENDED AND SOFT, HAS INDWELLING RODRIGUEZ CATHETER DRAINING YELLOW COLORED URINE, PATIENT TURNED AND REPOSITIONED, PATIENT HAD A LOOSE BM NEW DRESSING APPLIED TO COCCYX, HEELS OFFLOADED.CALL LIGHT AT REACH.
[2021-01-14 22:24] VITALS: BP 128/76
--- NOTE | 2021-01-15 | NUR ---
PATIENT RESTING IN BED,EYES CLOSED, DUE ZOSYN GIVEN, PATIENT RESPOSITIONED CALL LIGHT AT REACH.
[2021-01-15 04:05] VITALS: BP 140/78
--- NOTE | 2021-01-15 04:29 | NUR ---
PATINET RESTING IN BED, BREATHING UNLABORED, PATIENT TURNED AND REPOSITIONED WILL CONTINUE TO MONITOR.
--- NOTE | 2021-01-15 07:00 | NUR ---
RECIEVED REPORT FROM VIPUL DIAS
[2021-01-15 07:55] VITALS: BP 160/90
--- NOTE | 2021-01-15 07:55 | NUR ---
PT RESTING IN SEMI FOWLERS POSITION WITH EYES CLOSED. PT AWAKENS TO SPEECH BUT IS NONVERBAL. ASSESSMENT AND VITALS COMPLETED BP 160/90, HR 84, O2 100% ON ROOM AIR. RESPIRATIONS ARE EVEN AND UNLABORED WITH NO DISTRESS NOTED. LUNG SOUNDS ARE CLEAR. HEART RHYTHM NORMAL.ABD FIRM AND SLIGHTLY DISTENDED. BOWEL SOUNDS ARE ACTIVE. SCANT BM NOTED. #20G LH INFUSING WITH IVF PER ORDER, SITE REMAINS HEALTHY AND PATENT. DRESSING TO COCCYX CDI. UNSTAGABLE ULCERS NOTED TO MARLON HEELS. HEEL PROTECTOR APPLIED WITH PILLOWX2. NO SIGNS OF ANY PAINS OR DISCOMFORTS AT THIS TIME. ALL SAFTEY PRECAUTIONS ARE IN PLACE WITH CALL LIGHT IN REACH. WILL CONTINUE TO MONITOR.
--- NOTE | 2021-01-15 09:15 | NUR ---
DR MAGANA AT BEDSIDE
--- NOTE | 2021-01-15 09:33 | NUR ---
HOSPICE AT BEDSIDE
[2021-01-15] MEDS ORDERED: DOXYCYCL HYC100 MG PO (11:16)
--- NOTE | 2021-01-15 11:47 | NUR ---
PT RESTING IN SEMI FOLWERS POSITION WITH EYES CLOSED. RESPIRATIONS ARE EVEN AND UNLABORED WITH NO DISRTESS NOTED. #20G LH INFUSING WITH IVF PER ORDER, SITE REMAINS HEALTHY AND PATENT.PT POSITIONED TO RIGHT SIDE. NO SIGNS OF ANY PAINS OR DICOMFORTS. ALL SAFETY PRECAUTIONS ARE IN PLACE WITH CALL LIGHT IN REACH. WILL CONTINUE TO MONITOR.
[2021-01-15 13:09] VITALS: BP 161/88
--- NOTE | 2021-01-15 14:08 | NUR ---
DAUGHTER SELENE JOHNNIEKlaudia INFORMED OF DC INSTRUCTIONS AND NEW MEDICATIONS. DAUGHTER VERBALIZED UNDERSTANDING WITH NO QUESTIONS OR CONCERNS. OFFERED TO CALL OTHER DAUGHTER YAMILET AND UPDATE. REFUSED STATING SHE WOULD UPDATE HER. ETA OF MEDICAL TRANSPORTION AT 1500
--- NOTE | 2021-01-15 15:12 | NUR ---
BM NOTED. [facility] PROVIDED. #320G LH REMOVED WITH CATAHTER ATILL INTACT. RODRIGUEZ CATHATER REMAINS IN PLACE.
--- NOTE | 2021-01-15 15:16 | NUR ---
Discharge instructions given. Patient verbalizes understanding of same. Discharged in stable condition via [facility] Transport to Home with staff. All belongings sent with pt. PT DC HOME WITH HOSPICE IN STABLE CONDITION VIA [facility] WITH ALL DC INSTRUCTIONS AND MEDICATIONS.
--- NOTE | 2021-01-15 15:26 | NUR ---
DAUGHTER PILO CALLED TO NOTIFY OF DEPARTURE
== END 2021-01-15 15:17 | disposition hospice, inpatient (51) | DRG 871 ==
LOC: ED 10:23 → ED-I 12:49 → ED 13:30 → MS2 13:31
PROVIDERS: Nurse Practitioner; ADMIT Internal Medicine; ATTEND Internal Medicine
DX: A41.9 Sepsis, unspecified organism (principal); J18.9 Pneumonia, unspecified organism; G93.41 Metabolic encephalopathy; N39.0 Urinary tract infection, site not specified; R65.20 Severe sepsis without septic shock; E86.0 Dehydration; E11.9 Type 2 diabetes mellitus without complications; I10 Essential (primary) hypertension; E03.9 Hypothyroidism, unspecified; L89.152 Pressure ulcer of sacral region, stage 2; L89.610 Pressure ulcer of right heel, unstageable; E78.5 Hyperlipidemia, unspecified; K59.00 Constipation, unspecified; K21.9 Gastro-esophageal reflux disease without esophagitis; F03.90 Unspecified dementia, unspecified severity, without behavioral disturbance, psychotic disturbance, mood disturbance, and anxiety; Z51.5 Encounter for palliative care; Z66 Do not resuscitate; Z96.0 Presence of urogenital implants; Z79.84 Long term (current) use of oral hypoglycemic drugs; Z20.822 Contact with and (suspected) exposure to COVID-19
CPT/HCPCS: J0131; J1650; J3370